=== PATIENT | male | born 1940 | race Caucasian/White ===

== ENCOUNTER 2019-09-23 06:55 | Outpatient (CLI) | payer MEDICARE, SELFPAY ==
[2019-09-23 08:24] LABS: Alanine Aminotransferase 23 U/L (4-50); Albumin Level 3.9 g/dL (3.5-5.1); Alkaline Phosphatase 62 U/L (38-126); Aspartate Amino Transferase 30 U/L (17-59); Bilirubin,Total 0.3 mg/dL (0.2-1.3); Blood Urea Nitrogen 21 mg/dL (9-20); Calcium 9.9 mg/dL (8.4-10.2); Carbon Dioxide 27 mmol/L (22-30); Chloride 100 mmol/L (98-107); Cholesterol 160 mg/dL (0-200); Estimated Glomerular Filt Rate > 60; Glucose 94 mg/dL (75-110); HDL Direct 57 mg/dL; Potassium 4.3 mmol/L (3.4-5.0); Sodium 137 mmol/L (137-145); Triglycerides 70 mg/dL (<150)
[2019-09-23 08:35] LABS: LDL Cholesterol Direct 88 mg/dL
== END 2019-09-23 06:56 | disposition home or self-care (01) ==
PROVIDERS: PCP Emergency Medicine; Visit Provider Emergency Medicine
DX: E78.5 Hyperlipidemia, unspecified (principal)
CPT/HCPCS: 36415; 80053; 80061

== ENCOUNTER 2019-12-31 07:26 | Outpatient (CLI) | payer MEDICARE, SELFPAY ==
[2019-12-31 08:09] LABS: Alanine Aminotransferase 27 U/L (4-50); Albumin Level 4.3 g/dL (3.5-5.1); Alkaline Phosphatase 55 U/L (38-126); Aspartate Amino Transferase 39 U/L (17-59); Bilirubin,Total 0.7 mg/dL (0.2-1.3); Blood Urea Nitrogen 23 mg/dL (9-20); Calcium 10.3 mg/dL (8.4-10.2); Carbon Dioxide 28 mmol/L (22-30); Chloride 103 mmol/L (98-107); Cholesterol 167 mg/dL (0-200); Estimated Glomerular Filt Rate > 60; Glucose 90 mg/dL (75-110); HDL Direct 48 mg/dL; Potassium 4.7 mmol/L (3.4-5.0); Sodium 134 mmol/L (137-145); Triglycerides 60 mg/dL (<150)
[2019-12-31 08:20] LABS: LDL Cholesterol Direct 91 mg/dL
== END 2019-12-31 07:27 | disposition home or self-care (01) ==
LOC: ANHLAB 07:28
PROVIDERS: PCP Emergency Medicine; Visit Provider Emergency Medicine
DX: E78.5 Hyperlipidemia, unspecified (principal)
CPT/HCPCS: 36415; 80053; 80061

== ENCOUNTER 2020-01-24 23:37 | Observation (INO) | payer MEDICARE, SELFPAY ==
--- NOTE | ~2020-01-24 | XR_ITS ---
EXAMINATION: XR chest 2V DATE: 01/25/2020 00:18 INDICATION: Midsternal chest pain. TECHNIQUE: PA and lateral views of the chest were obtained. COMPARISON: Chest radiograph dated 5 FINDINGS: Elevation of the right hemidiaphragm. Linear opacities at the bilateral lung bases and favor atelecta sis over pneumonia. No pulmonary edema, pleural effusion or pneumothorax. The cardiomediastinal silho uette is normal. Moderate spondylosis. IMPRESSION: 1. Elevation right hemidiaphragm and mild bibasilar atelectasis. Reviewed, dictated and finalized at location A.
[2020-01-24 23:38] VITALS: BP 184/95; PULSE 105; RESP 17; TEMP 36; O2SAT 97
--- NOTE | 2020-01-24 23:44 | ECG_ITS ---
Measurements Intervals [place] Rate: 92 P: 69 MI: 157 QRS: -22 QRSD: 122 T: 46 QT: 363 QTc: 450 Interpretive Statements SINUS RHYTHM POSSIBLE LEFT ATRIAL ENLARGEMENT RIGHT BUNDLE BRANCH BLOCK BASELINE ARTIFACT- I, III, AVL, AVF ABNORMAL ECG Electronically Signed On 01-25-2020 8:09:42 CDT by Sunny Ramsey D.O.
[2020-01-24 23:54] LABS: Basophils Percent Auto 0.5 % (0.2-1.2); Eosinophils Absolute Auto 0.2 K/mm3 (0-0.3); Eosinophils Percent Auto 2.5 % (0-4.4); Hematocrit 42.3 % (42.0-52.0); Hemoglobin 14.5 g/dL (14.0-18.0); Immature Granulocyte Absolute 0.03 K/mm3 (0.00-0.031); Immature Granulocyte Percent A 0.4 % (0-0.5); Lymphocytes Absolute Auto 2.11 K/mm3 (0.9-3.2); Lymphocytes Percent Auto 26.8 % (18.3-44.2); Mean Corpuscular HGB Conc 34.3 g/dl (32-36); Mean Corpuscular Volume 99.3 fl (80-100); Mean Platelet Volume 8.8 fl (7.4-10.4); Monocytes Absolute Auto 0.8 K/mm3 (0.1-0.6); Monocytes Percent Auto 10.3 % (2.6-8.5); Neutrophils Absolute Auto 4.7 K/mm3 (1.3-6.7); Neutrophils Percent Auto 59.5 % (45.5-73.1); Platelet Count Result 251 k/mm3 (150-375); Red Blood Count 4.26 M/mm3 (4.6-6.20); Red Cell Distribution Width 12.6 % (11.5-14.5); White Blood Count 7.9 K/mm3 (4.5-10.0)
[2020-01-25] VITALS (16 sets, daily range): BP systolic 115–162; BP diastolic 53–110; PULSE 61–112; RESP 13–20; TEMP 35.5–36.8; O2SAT 96–97; BMI 28.9
[2020-01-25 00:03] LABS: INR 0.9; Prothrombin Time 11.7 Seconds (11.1-14.7)
[2020-01-25 00:04] LABS: Partial Thromboplastin Time 25.4 SECONDS (22.3-36.8)
[2020-01-25 00:06] LABS: Blood Urea Nitrogen 37 mg/dL (9-20); Calcium 10.7 mg/dL (8.4-10.2); Carbon Dioxide 27 mmol/L (22-30); Chloride 103 mmol/L (98-107); Estimated CRCL calculation 63 ml/min; Estimated Glomerular Filt Rate > 60; Glucose 118 mg/dL (75-110); Potassium 4.6 mmol/L (3.4-5.0); Sodium 137 mmol/L (137-145)
[2020-01-25 00:18] LABS: Troponin I < 0.012 ng/mL (0.000-0.034)
--- NOTE | 2020-01-25 00:33 | ED.CHESTPAIN ---
HPI - Chest Pain General Chief Complaint: Chest Pain Stated Complaint: chest discomfort Time Seen by Provider: 01/24/20 23:54 Source: patient Mode of arrival: ambulatory Limitations: no limitations History of Present Illness HPI narrative: This patient is a 80 year old male with history of Coronary artery disease s/p stents in 2004 who presents for evaluation of chest heaviness. Patient states today he has been experiencing intermittent heaviness across his chest when he walks around . He states it does not happen every time he walks. Today he woke up at 1030 pm to use the restroom. He states while laying in bed he had no pain but he developed pain on walking to the restroom. His pain does not radiate. His pain has resolved now with rest. He had associated sob. HE denies diaphoresis, dizziness, nausea or vomiting. 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 He last saw cardiology in 2012 when he had stress test. MD complaint: chest heaviness Related Data Home Medications Medication Instructions Recorded Confirmed cholecalciferol (vitamin D3) 1,000 unit PO DAILY 06/05/19 01/25/20 [Vitamin D3] multivitamin 1 tablet PO DAILY 06/05/19 01/25/20 aspirin 81 mg tablet,delayed See Rx Instructions PO BID 01/06/20 01/25/20 release Allergies Allergy/AdvReac Type Severity Reaction Status Date / Time No Known Allergies Allergy Unknown Verified 01/24/20 23:42 Review of Systems Review of Systems: All systems reviewed & are unremarkable except as noted in HPI and below Constitutional: Constitutional: Denies chills and Denies fever(s) Cardiovascular: Cardiovascular: Reports chest pain Respiratory: Respiratory: Denies chest congestion, Denies cough and Reports dyspnea Gastrointestinal: Gastrointestinal: Denies abdominal pain, Denies nausea and Denies vomiting PMFSH Past Medical History Medical History CAD (coronary artery disease) Hyperlipidemia Hypertension Squamous cell cancer of skin of forearm Surgical History Surgical History H/O cardiac catheterization Hx of appendectomy Hx of local excision of skin lesion Hx of tonsillectomy Family History Family History Sibling Carcinoma of colon, Onset Age: 59 Father Family history of cardiovascular disease, Onset Age: 83 Social History Social History Smoking status: Former smoker Alcohol intake: never Substance use: never Gender identity (if verbalized by the patient): Male Spiritual care concerns: No Exam Narrative: Exam Narrative: GENERAL: Well-appearing, well-nourished, and in no acute distress. HEAD: Normocephalic, atraumatic EYES: PERRLA and EOMI, conjunctiva clear without discharge EARS: TM's clear bilaterally without erythema or dullness e NECK: Supple, without lymphadenopathy or mass RESPIRATORY: No respiratory distress, Airway patent, Respirations non-labored, Clear to auscultation without rales, rhonchi or wheeze HEART: Regular rate and rhythm. No murmur heard. Normal peripheral pulses. ABDOMEN: Soft, nontender, nondistended, normal active bowel sounds. No masses. No rebound or guarding, No organomegaly. EXTREMITIES: No edema, normal strength with full range of motion. SKIN: Warm, dry, normal color without rash NEURO: Alert and oriented x3. CN 2-12 grossly intact. No focal deficits. PSYCH: Normal mood and affect. Course Consultations Consultation #1: I Discussed case with Dr. Escalona who accepts for admission to IMU for rule out MO Date: 01/25/20 Time: 01:18 Vital Signs Vital signs: Vital Signs Temperature 96.8 F L 01/24/20 23:38 Pulse Rate 105 H 01/24/20 23:38 Respiratory Rate 17 01/24/20 23:38 Blood Pressure 184/95 H 01/24/20 23:38 Pulse Oximetry 97 01/24/20 23:38 [place]
[2020-01-25] MEDS: ASPIRIN 81 MG CHEWABLE TABLET 324 MG PO (01:25)
--- NOTE | 2020-01-25 02:02 | ADMGEN ---
This patient, Diallo Michele, was admitted to IMU Room 211-01. Patient/family oriented to hospital policies and general routines including ID bracelet, bed and alarms, visiting hours, pain management, procedures, bathroom and other care routines, personal items, smoking policy, room service/diet, and visiting hours. Valuables list has been completed. Information on how to activate the Rapid Response Team has been discussed. Patient/Family are encouraged to report perceived risks to care and to ask questions if they do not understand what they are told or what they should do.
--- NOTE | 2020-01-25 02:54 | ECG_ITS ---
Measurements Intervals [place] Rate: 63 P: 48 NV: 154 QRS: -2 QRSD: 127 T: 36 QT: 408 QTc: 419 Interpretive Statements SINUS RHYTHM RIGHT BUNDLE BRANCH BLOCK ABNORMAL ECG Electronically Signed On 01-25-2020 8:11:30 CDT by Sunny Ramsey D.O.
--- NOTE | 2020-01-25 02:57 | PM.IMHP ---
H&P: HPI History of Present Illness Chief complaint: chest pain r/o [place] Narrative: This is a pleasant 80 year old male with known CAD+ s/p #3 stents placed in 2004, HTN, and hyperlipidemia who presented to the hospital with a complaint of worsening midsternal chest heaviness when he got up and went to the bathroom this evening. His chest pain lasted almost 1 hour in duration and resolved on its own by the time he came to the hospital. He denies any associated shortness of breath, diaphoresis, nausea or vomiting. He relates that he has been having exertional chest discomfort over the past few weeks that normally resolves with rest. Tonight his discomfort was worse than normal. His last stress test was in 2012. He denies any other associated symptoms such as fever, headache, chills, cough, abdominal pain, dysuria, hematuria, diarrhea, rectal bleeding or LE swelling. The patient's initial troponin was negative. We were asked to admit the patient to the hospital for cardiac rule out. He has no other symptoms. Review of Systems Review of Systems: All systems reviewed & are unremarkable except as noted in HPI and below PMFSH Past Medical History Medical History CAD (coronary artery disease) Hyperlipidemia Hypertension Squamous cell cancer of skin of forearm Surgical History Surgical History H/O cardiac catheterization Hx of appendectomy Hx of local excision of skin lesion Hx of tonsillectomy Family History Family History Sibling Carcinoma of colon, Onset Age: 59 Father Family history of cardiovascular disease, Onset Age: 83 Social History Social History Smoking status: Former smoker Alcohol intake: never Substance use: never Gender identity (if verbalized by the patient): Male Spiritual care concerns: No Meds Home Medications and Allergies Home Medications Medication Instructions Recorded Confirmed Type metoprolol succinate 25 mg 25 mg PO DAILY #90 tablet 06/03/19 01/25/20 Rx tablet,extended release 24 hr cholecalciferol (vitamin D3) 1,000 unit PO DAILY 06/05/19 01/25/20 History [Vitamin D3] multivitamin 1 tablet PO DAILY 06/05/19 01/25/20 History lisinopril 5 mg tablet 5 mg PO DAILY #90 tablet 07/05/19 01/25/20 Rx atorvastatin 10 mg tablet See Rx Instructions .ROUTE 07/22/19 01/25/20 Rx .COMPLEX #90 tablet aspirin 81 mg tablet,delayed See Rx Instructions PO BID 01/06/20 01/25/20 History release Allergies Allergy/AdvReac Type Severity Reaction Status Date / Time No Known Allergies Allergy Unknown Verified 01/24/20 23:42 Vital Signs Vital Signs - 24 hr 01/24/20 23:38 01/25/20 00:47 01/25/20 00:48 Temperature 36.0 C L Pulse Rate 105 H 66 64 Respiratory Rate 17 13 Blood Pressure 184/95 H 142/88 H Pulse Oximetry 97 96 01/25/20 01:55 01/25/20 02:07 01/25/20 02:08 Temperature 35.5 C L Pulse Rate 63 61 64 Respiratory Rate 20 18 Blood Pressure 129/110 H 156/53 H Pulse Oximetry 96 96 Exam Const: General: cooperative, healthy appearing, no acute distress, alert and awake Nutritional Appearance: well nourished Orientation/consciousness: patient oriented x3 HENMT: Head: normal to inspection General nose exam: Normal external nose present Face and sinus: normal facial exam Mouth: Yes Normal oral and palatal mucosa present and Yes oropharynx normal Eyes: Pupils: Equal, round and reactive pupils present EOM: EOMs intact bilaterally Neck: Neck: supple and no JVD Thyroid: thyroid normal Lymphatic: lymphadenopathy not noted Resp: Effort & Inspection: normal respiratory effort Auscultation: clear to auscultation bilaterally Cardio: Rate: regular rate Rhythm: regular rhythm Heart sounds: no murmurs GI: Inspection:
[2020-01-25 03:39] LABS: Troponin I < 0.012 ng/mL (0.000-0.034)
[2020-01-25 06:47] LABS: Troponin I 0.017 ng/mL (0.000-0.034)
[2020-01-25] MEDS: CHOLECALCIFEROL 1,000 UNIT TABLET 1000 UNITS PO (10:55)
[2020-01-25] MEDS: ASPIRIN 81 MG CHEWABLE TABLET PO (10:55)
[2020-01-25] MEDS: lisinopriL 5 MG TABLET PO (10:55)
[2020-01-25] MEDS: MULTIVITAMINS THERAPEUTIC TAB (*BKC) 1 TABLET PO (10:55)
--- NOTE | 2020-01-25 11:07 | PM.IMPN ---
Progress Note: A&P Assessment and Plan (1) Chest pain: Qualifiers: Chest pain type: unspecified Qualified Code(s): R07.9 - Chest pain, unspecified Code(s): R07.9 - Chest pain, unspecified Status: Acute Assessment and Plan: Patient with history of CAD and coronary stents x 3 in 2004 presents with intermittent chest pressure with activity and exertional dyspnea. Discussed case with Dr Almodovar and appreciate his recommendations. Feel that it is best to keep patient here for cardiac catheterization on Monday given the concern for his progressive symptoms. Serial trops are negative. Today he remains on beta blockade, AILEEN inhibitor, ASA, statin therapy. Cardiology started imdur as well. (2) Hypertension: Qualifiers: Hypertension type: essential hypertension Qualified Code(s): I10 - Essential (primary) hypertension Code(s): I10 - Essential (primary) hypertension Status: Chronic Assessment and Plan: BPs are a bit elevated today, he remains on his home metoprolol and lisinopril. Will monitor. (3) Hyperlipidemia: Qualifiers: Hyperlipidemia type: unspecified Qualified Code(s): E78.5 - Hyperlipidemia, unspecified Code(s): E78.5 - Hyperlipidemia, unspecified Status: Chronic Assessment and Plan: Continue statin therapy. Subjective Date/time seen: 01/25/20 1100 Interval history: Mr. Michele is a 80yo M admitted for chest pain. He describes intermittent episodes of chest pressure across both sides of his chest over the last few weeks. He presented last night after waking up from sleeping, walking to the restroom and experiencing this discomfort while walking, this time worse than before. He notes that he wasn't particularly short of breath or sweaty during the episode, but has noticed more shortness of breath with exertion over the last few weeks. He describes he is not having this chest pressure this morning or any shortness of breath so far today. He has tolerated oral intake without nausea or vomiting. Review of Systems Review of Systems: Narrative: Twelve systems were reviewed with pertinent positives and negatives as per HPI. Exam Narrative: Exam Narrative: General: Male resting comfortably supine in bed in no acute distress. HEENT: Normocephalic, EOMI, oral mucosa moist. Cardiovascular: Rate and rhythm are regular. Respiratory: Lungs clear to auscultation all raya. Respirations even and nonlabored. Tolerating room air. Abdomen: Soft, non-tender, non-distended, bowel sounds present. Extremities: Peripheral pulses intact. No edema appreciated. Neuro: No focal neurological deficits. Speech is clear. Objective Data Vital Signs Vital Signs: Last Vital Signs Temp 98.2 F 01/25/20 12:00 Pulse 105 H 01/25/20 14:00 Resp 16 01/25/20 12:00 BP 162/83 H 01/25/20 12:00 Pulse Ox 97 01/25/20 12:00 Intake/Output Intake/Output: Intake & Output 01/22/20 01/23/20 01/24/20 01/25/20 23:59 23:59 23:59 23:59 Intake Total 340 Balance 340 Meds/Results Medications: Active Medications Generic Name Dose Route Start Last Admin Trade Name Freq PRN Reason Stop Dose Admin Aspirin 81 mg 01/25/20 08:00 01/25/20 10:55 Aspirin Chewable PO 81 mg DAILY@0800 [facility] Administration Atorvastatin Calcium 10 mg 01/26/20 09:00 Lipitor BY MOUTH SuMoWeFr@0900 [facility] Lisinopril 5 mg 01/25/20 09:00 01/25/20 10:55 Prinivil PO 5 mg DAILY [facility] Administration Metoprolol Succinate 25 mg 01/25/20 09:00 Toprol Xl PO DAILY [facility] Morphine Sulfate 4 mg 01/25/20 01:16 Morphine Sulfate Inj IV PUSH Q2H PRN Pain Rated 7-10 Multivitamins Therapeutic 1 tablet 01/25/20 09:00 01/25/20 10:55 Multivitamins Therapeutic(*Bkc PO 1 tablet DAILY [facility] Administration Nitroglycerin 0.4 mg 01/25/20 01
[2020-01-25] MEDS: METOPROLOL SUCCINATE EXT REL 25 MG TABCR PO (11:34)
--- NOTE | 2020-01-25 12:02 | PM.CNCAR ---
Assessment and Plan Assessment and plan (1) Progressive angina: Code(s): I20.0 - Unstable angina Status: Acute Assessment and Plan: serial cardiac enzymes negative for acute myocardial infarction. Subtle ST depressions initially on EKG improved this a.m.. Underlying right bundle-branch block noted. Patient has been experiencing progressive limiting exertional dyspnea associated with chest tightness initially more significant exertion until evening of presentation which was noted walking to the restroom lasting from 1-1.5 hours prior to resolving. Patient admits to progressive fatigue and dyspnea with associated discomfort for the past 6 months worse over the past 2 weeks. Pattern concerning for escalating / progressive angina. Given patient's history of CAD, h/o previous stentsx3 2004, risk factors, and the escalating angina, coronary angiography advised as his pretest probability is very high and even if noninvasive stress test unremarkable our clinic concern for obstructive CAD would remain. In other words, I would expect a stress test to be abnormal. continue aspirin 81 mg daily, statin, BB. Add long-acting nitrate. Of any recurrent symptoms exertional dyspnea and or chest pain patient will need to remain hospitalized for coronary angiography in a.m. on Monday. If he has no recurrent symptoms is possible he may be discharged, however, I am concerned given escalating nature of his symptoms he may require readmission over the weekend or prior to the ability to perform coronary angiography given the delays associated with current pandemic precautions/policies. We discussed this in great detail. All questions answered to his satisfaction. Patient will consider these recommendations and make a decision, however, my preference is to remain hospitalized this weekend for observation, medication adjustment and coronary angiography Monday (or sooner if he is unstable or has refractory angina). If patient stays this weekend, keep NPO after midnight Monday night for anticipated coronary angiography Monday. Discussed risks, benefits, and alternatives of the above recommendations. Patient verbalized understanding and agreed to comply with plan of care. All questions answered to his satisfaction. (2) CAD (coronary artery disease): Code(s): I25.10 - Atherosclerotic heart disease of [place] coronary artery without angina pectoris Status: Acute Assessment and Plan: History of coronary stenting in 2004 x3. details unavailable at this time. Continue aggressive medical therapy. See above. 2D echocardiogram. Patient reports his last stress test 2012. He has not followed with a [facility] for many years. (3) Hypertension: Code(s): I10 - Essential (primary) hypertension Status: Chronic Assessment and Plan: Elevated but fair overall. Continue to monitor. (4) Hyperlipidemia: Qualifiers: Hyperlipidemia type: unspecified Qualified Code(s): E78.5 - Hyperlipidemia, unspecified Code(s): E78.5 - Hyperlipidemia, unspecified Status: Chronic Assessment and Plan: Check fasting lipid profile. Goal LDL less than 70. Recommend escalation of statin dosing to at least 40 mg atorvastatin nightly as patient tolerates. (5) Shortness of breath on exertion: Code(s): R06.02 - Shortness of breath Status: Acute Assessment and Plan: most likely secondary to underlying obstructive CAD as part of his anginal equivalent. History of Present Illness History of Present Illness Consult date/time: date of service: 01/25/20 12:02 This is a cardiology consultation at the request of EVERETTE Gates for my opinion regarding progressive exertional angina. Requesting physician: Joelle Garner PA-C Consult reason: chest pain Reason For Visit: chest pain r/o [place] Narrative: patient is a very pleasant 80-year-old male with a past
--- NOTE | 2020-01-25 12:18 | ECHO_ITS ---
Patient Info Name: Diallo Michele Age: 80 years : 1940 Gender: Male Ht: 67 in Wt: 184 lbs BSA: 2.01 m2 HR: 88 bpm BP: 151 / 75 mmHg Heart Rhythm: Sinus Rhythm Technical Quality: Good Exam Date: 01/25/2020 12:43 PM Exam Location: [facility] Pulmonary Exam Room: 211 Patient Status: Inpatient Admit Date: 01/25/2020 Staff Ordering Physician: Tristen Almodovar MD Slip Cover Cutter: Sarah Velasquez RDCS Attending Provider: Joelle Garner PA-C Referring Physician: Scooby GARCES; Exam Type: CA echo doppler color flow Study Info Indications - chest pain Complete two-dimensional, color flow and Doppler transthoracic echocardiogram is performed. Summary 1. Left ventricular chamber dimension is normal. 2. Left ventricular systolic function is normal, estimated at 65-70%. 3. The left ventricular diastolic function is grade I diastolic dysfunction. 4. There is trace mitral valve regurgitation. 5. There is trace tricuspid valve regurgitation. 6. No pulmonary hypertension, estimated pulmonary arterial systolic pressure is 23 mmHg. Left Ventricle Left ventricular chamber dimension is normal. Left ventricular systolic function is normal, estimated at 65-70%. There is no increased left ventricular wall thickness. The left ventricular diastolic function is grade I diastolic dysfunction. Right Ventricle Right ventricular chamber dimension is normal. Right ventricular systolic function is normal. Left Atria Left atrial chamber dimension is normal. Right Atria Right atrial chamber dimension is normal. Aortic Valve The aortic valve is trileaflet. There is mild aortic valve sclerosis. There is no aortic valve stenosis. There is mild aortic valve regurgitation. Pulmonic Valve The pulmonic valve is not well visualized. There is mild pulmonic regurgitation. Mitral Valve The mitral valve has thickened leaflets. There is trace mitral valve regurgitation. The mitral valve annulus is mildly calcified. Tricuspid Valve The tricuspid valve leaflets are normal. There is trace tricuspid valve regurgitation. No pulmonary hypertension, estimated pulmonary arterial systolic pressure is 23 mmHg. Pericardium/Pleural The pericardium appears normal. There is no pericardial effusion. Inferior Vena Cava Normal inferior vena cava with >50% collapse upon inspiration consistent with normal right atrial pressure, 5 mmHg. Aorta The aortic root size at the sinus of Valsalva is normal. There is mild aortic atherosclerosis. Left Ventricular Outflow Tract Name Value Normal LVOT 2D LVOT Diameter 2.1 cm LVOT Doppler LVOT Peak Gradient 5 mmHg LVOT Mean Gradient 2 mmHg LVOT VTI 19 cm LVOT VTI/AV VTI Ratio 0.8 LVOT Stroke Volume 65 ml LVOT CO 15.4 l/min LVOT CI 7.7 l/min/m2 Pulmonic Valve Name
[2020-01-25] MEDS: ISOSORBIDE MONONITRATE 30 MG TAB.ER.24H PO (12:39)
[2020-01-25 12:52] LABS: Cholesterol 183 mg/dL (0-200); HDL Direct 53 mg/dL; Triglycerides 98 mg/dL (<150)
[2020-01-25 13:03] LABS: LDL Cholesterol Direct 102 mg/dL
[2020-01-26] VITALS (18 sets, daily range): BP systolic 109–128; BP diastolic 56–69; PULSE 55–88; RESP 12–20; TEMP 35.8–36.6; O2SAT 93–97
[2020-01-26 04:32] LABS: Blood Urea Nitrogen 28 mg/dL (9-20); Calcium 9.7 mg/dL (8.4-10.2); Carbon Dioxide 26 mmol/L (22-30); Chloride 103 mmol/L (98-107); Estimated CRCL calculation 50 ml/min; Estimated Glomerular Filt Rate > 60; Glucose 99 mg/dL (75-110); Magnesium 2.2 mg/dL (1.6-2.3); Phosphorus 2.9 mg/dL (2.5-4.5); Potassium 4.6 mmol/L (3.4-5.0); Sodium 134 mmol/L (137-145)
[2020-01-26] MEDS: MULTIVITAMINS THERAPEUTIC TAB (*BKC) 1 TABLET PO (09:14)
[2020-01-26] MEDS: ASPIRIN 81 MG CHEWABLE TABLET PO (09:14)
[2020-01-26] MEDS: lisinopriL 5 MG TABLET PO (09:14)
[2020-01-26] MEDS: METOPROLOL SUCCINATE EXT REL 25 MG TABCR PO (09:14)
[2020-01-26] MEDS: ISOSORBIDE MONONITRATE 30 MG TAB.ER.24H PO (09:14)
[2020-01-26] MEDS: CHOLECALCIFEROL 1,000 UNIT TABLET 1000 UNITS PO (09:14)
[2020-01-26] MEDS: ATORVASTATIN 10 MG TABLET BY MOUTH (10:31)
--- NOTE | 2020-01-26 12:11 | PM.PNCARD ---
Progress Note: A&P Assessment and Plan (1) Progressive angina: Code(s): I20.0 - Unstable angina Status: Acute Assessment and Plan: Mild exertional dyspnea persist but no chest pain. Tolerating isosorbide mononitrate 30 mg daily. Continue aspirin, statin, AILEEN-inhibitor and metoprolol. NPO after midnight for left heart catheterization in a.m. to delineate coronary anatomy. Patient had Taxus 2 express stents placed 2005 2.5 x 12 mm proximal LAD, 2.5 x 8 mm proximal LAD, 2.75 x 12 mm proximal circumflex. 2D echo personally reviewed: Summary 1. Left ventricular chamber dimension is normal. 2. Left ventricular systolic function is normal, estimated at 65-70%. 3. The left ventricular diastolic function is grade I diastolic dysfunction. 4. There is trace mitral valve regurgitation. 5. There is trace tricuspid valve regurgitation. 6. No pulmonary hypertension, estimated pulmonary arterial systolic pressure is 23 mmHg. (2) CAD (coronary artery disease): Code(s): I25.10 - Atherosclerotic heart disease of [place] coronary artery without angina pectoris Status: Acute Assessment and Plan: History of coronary stenting in 2004 x3. Continue aggressive medical therapy. Further recommendation to follow after coronary angiography in a.m.. We discussed risks, benefits, and alternatives. All questions answered to his satisfaction including possibility of escalating medical management, percutaneous intervention and stent implantation, and referral for CABG. (3) Hypertension: Qualifiers: Hypertension type: essential hypertension Qualified Code(s): I10 - Essential (primary) hypertension Code(s): I10 - Essential (primary) hypertension Status: Chronic Assessment and Plan: Improved with addition of Imdur. Continue to monitor. (4) Hyperlipidemia: Qualifiers: Hyperlipidemia type: unspecified Qualified Code(s): E78.5 - Hyperlipidemia, unspecified Code(s): E78.5 - Hyperlipidemia, unspecified Status: Chronic Assessment and Plan: Check fasting lipid profile. Goal LDL less than 70. LDL 102. Increase atorvastatin to 40 mg at bedtime. (5) Shortness of breath on exertion: Code(s): R06.02 - Shortness of breath Status: Acute Assessment and Plan: Most likely anginal equivalent due to underlying CAD. No evidence of decompensated heart failure or other acute respiratory problem. Subjective Date/time seen: Date of service: 01/26/20 12:11 Follow-up for unstable angina, CAD Interval history: No recurrent chest pain. No issues overnight. Patient has been ambulating and admits to persistent mild exertional dyspnea which is not normal for him. He decided to remain hospitalized for coronary angiography Monday morning. No edema, dizziness or lightheadedness. Tolerate Imdur which was added yesterday. No palpitations. Review of Systems Review of Systems: All systems reviewed & are unremarkable except as noted in HPI and below Constitutional: Constitutional: Reports as per HPI, Reports no additional constitutional complaints, Denies chills, Denies excessive sweating, Reports fatigue and Denies headache(s) Eyes: Eyes: Reports as per HPI and Reports no additional eye complaints ENT: Reports system reviewed and no additional complaints, except as documented, Reports as per HPI, Denies dysphagia, Denies headache(s), Denies nasal discharge and Denies neck pain Cardiovascular: Cardiovascular: Reports as per HPI, Reports no additional cardiovascular complaints, Reports chest pain, Denies diaphoresis, Denies leg edema, Denies lightheadedness, Denies palpitations and Reports dyspnea on exertion Respiratory: Respiratory: Reports as per HPI, Reports no additional respiratory complaints, Reports cough, Denies hemoptysis, Reports dyspnea on exertion and Denies wheezing Gastrointestinal: Gastrointestinal: Reports as per HPI, Reports no addit
--- NOTE | 2020-01-26 13:37 | PM.IMPN ---
Progress Note: A&P Assessment and Plan (1) Chest pain: Qualifiers: Chest pain type: unspecified Qualified Code(s): R07.9 - Chest pain, unspecified Code(s): R07.9 - Chest pain, unspecified Status: Acute Assessment and Plan: Patient with history of CAD and coronary stents x 3 in 2004 presents with intermittent chest pressure with activity and exertional dyspnea. Discussed case with Dr Almodovar and appreciate his recommendations. Given his progression of symptoms, he will stay overnight for cardiac catheterization tomorrow. Today he remains on beta blockade, AILEEN inhibitor, ASA, statin therapy. Cardiology started imdur as well. (2) Hypertension: Qualifiers: Hypertension type: essential hypertension Qualified Code(s): I10 - Essential (primary) hypertension Code(s): I10 - Essential (primary) hypertension Status: Chronic Assessment and Plan: Last BP 128/68. He remains on his home metoprolol and lisinopril, new imdur. Will monitor. (3) Hyperlipidemia: Qualifiers: Hyperlipidemia type: unspecified Qualified Code(s): E78.5 - Hyperlipidemia, unspecified Code(s): E78.5 - Hyperlipidemia, unspecified Status: Chronic Assessment and Plan: Continue statin therapy. Subjective Date/time seen: 01/26/20 1145 Interval history: Mr. Michele is a 80yo M with CAD admitted for unstable angina. No recurrent chest pain over night or this morning. He does describe some mild shortness of breath with walking to the restroom. He has tolerated oral intake without nausea, vomiting or abdominal pain. Review of Systems Review of Systems: Narrative: Twelve systems were reviewed with pertinent positives and negatives as per HPI. Exam Narrative: Exam Narrative: General: Male resting comfortably supine in bed in no acute distress. HEENT: Normocephalic, EOMI, oral mucosa moist. Cardiovascular: Rate and rhythm are regular. Respiratory: Lungs clear to auscultation all raya. Respirations even and non-labored. Tolerating room air. Abdomen: Soft, non-tender, non-distended, bowel sounds present. Extremities: Peripheral pulses intact. No edema appreciated. Neuro: No focal neurological deficits. Speech is clear. Objective Data Vital Signs Vital Signs: Last Vital Signs Temp 98 F 01/26/20 12:00 Pulse 68 01/26/20 12:00 Resp 12 01/26/20 12:00 BP 128/68 01/26/20 12:00 Pulse Ox 97 01/26/20 12:00 Intake/Output Intake/Output: Intake & Output 01/23/20 01/24/20 01/25/20 01/26/20 23:59 23:59 23:59 23:59 Intake Total 1500 440 Output Total 1250 325 Balance 250 115 Meds/Results Medications: Active Medications Generic Name Dose Route Start Last Admin Trade Name Freq PRN Reason Stop Dose Admin Aspirin 81 mg 01/25/20 08:00 01/26/20 09:14 Aspirin Chewable PO 81 mg DAILY@0800 [facility] Administration Atorvastatin Calcium 10 mg 01/26/20 09:00 01/26/20 10:31 Lipitor BY MOUTH 10 mg SuMoWeFr@0900 [facility] Administration Isosorbide Mononitrate 30 mg 01/25/20 12:05 01/26/20 09:14 Imdur PO 30 mg QAM [facility] Administration Lisinopril 5 mg 01/25/20 09:00 01/26/20 09:14 Prinivil PO 5 mg DAILY [facility] Administration Metoprolol Succinate 25 mg 01/25/20 09:00 01/26/20 09:14 Toprol Xl PO 25 mg DAILY [facility] Administration Morphine Sulfate 4 mg 01/25/20 01:16 Morphine Sulfate Inj IV PUSH Q2H PRN Pain Rated 7-10 Multivitamins Therapeutic 1 tablet 01/25/20 09:00 01/26/20 09:14 Multivitamins Therapeutic(*Bkc PO 1 tablet DAILY [facility] Administration Nitroglycerin 0.4 mg 01/25/20 01:16 Nitrostat Subl 0.4 Mg (1/150) SUBLINGUAL Q5MIN PRN Chest Pain Ondansetron HCl 4 mg 01/25/20 01:16 Zofran Inj IV PUSH Q4H PRN Nausea Vitamin D 1,000 unit 01/25/20 09:00 01/26/20 09:
[2020-01-27] VITALS (25 sets, daily range): BP systolic 120–161; BP diastolic 62–86; PULSE 60–92; RESP 13–20; TEMP 35.7–36.7; O2SAT 96–100
[2020-01-27 04:55] LABS: Basophils Percent Auto 0.5 % (0.2-1.2); Eosinophils Absolute Auto 0.2 K/mm3 (0-0.3); Eosinophils Percent Auto 4.3 % (0-4.4); Hematocrit 34.8 % (42.0-52.0); Immature Granulocyte Absolute 0.02 K/mm3 (0.00-0.031); Immature Granulocyte Percent A 0.4 % (0-0.5); Lymphocytes Absolute Auto 1.38 K/mm3 (0.9-3.2); Lymphocytes Percent Auto 24.8 % (18.3-44.2); Mean Corpuscular HGB Conc 34.5 g/dl (32-36); Mean Corpuscular Hemoglobin 34.1 pg (26-34); Mean Corpuscular Volume 98.9 fl (80-100); Mean Platelet Volume 9.1 fl (7.4-10.4); Monocytes Absolute Auto 0.6 K/mm3 (0.1-0.6); Monocytes Percent Auto 10.4 % (2.6-8.5); Neutrophils Absolute Auto 3.3 K/mm3 (1.3-6.7); Neutrophils Percent Auto 59.6 % (45.5-73.1); Platelet Count Result 201 k/mm3 (150-375); Red Blood Count 3.52 M/mm3 (4.6-6.20); Red Cell Distribution Width 12.2 % (11.5-14.5); White Blood Count 5.6 K/mm3 (4.5-10.0)
[2020-01-27 05:06] LABS: Prothrombin Time 12.6 Seconds (11.1-14.7)
[2020-01-27 05:07] LABS: Partial Thromboplastin Time 27.5 SECONDS (22.3-36.8)
[2020-01-27 05:12] LABS: Blood Urea Nitrogen 24 mg/dL (9-20); Calcium 9.6 mg/dL (8.4-10.2); Carbon Dioxide 25 mmol/L (22-30); Chloride 104 mmol/L (98-107); Estimated CRCL calculation 62 ml/min; Estimated Glomerular Filt Rate > 60; Glucose 93 mg/dL (75-110); Magnesium 2.2 mg/dL (1.6-2.3); Potassium 4.2 mmol/L (3.4-5.0); Sodium 133 mmol/L (137-145)
[2020-01-27] MEDS: ATORVASTATIN 10 MG TABLET BY MOUTH (08:24)
[2020-01-27] MEDS: CHOLECALCIFEROL 1,000 UNIT TABLET 1000 UNITS PO (08:24)
[2020-01-27] MEDS: ASPIRIN 81 MG CHEWABLE TABLET PO (08:24)
[2020-01-27] MEDS: MULTIVITAMINS THERAPEUTIC TAB (*BKC) 1 TABLET PO (08:24)
[2020-01-27] MEDS: METOPROLOL SUCCINATE EXT REL 25 MG TABCR PO (08:24)
[2020-01-27] MEDS: lisinopriL 5 MG TABLET PO (08:24)
[2020-01-27] MEDS: ISOSORBIDE MONONITRATE 30 MG TAB.ER.24H PO (08:24)
--- NOTE | 2020-01-27 09:27 | PM.IMPN ---
Progress Note: A&P Assessment and Plan (1) Chest pain: Qualifiers: Chest pain type: unspecified Qualified Code(s): R07.9 - Chest pain, unspecified Code(s): R07.9 - Chest pain, unspecified Status: Acute Assessment and Plan: Patient with history of CAD and coronary stents x 3 in 2004 presents with intermittent chest pressure with activity and exertional dyspnea. Plan is for cardiac catheterization today. Today he remains on beta blockade, AILEEN inhibitor, ASA, statin therapy. Cardiology started imdur as well. Edit: Patient to transfer to [facility] this afternoon for CABG. See Transfer Summary. (2) Hypertension: Qualifiers: Hypertension type: essential hypertension Qualified Code(s): I10 - Essential (primary) hypertension Code(s): I10 - Essential (primary) hypertension Status: Chronic Assessment and Plan: Last BP 135/75. He remains on his home metoprolol and lisinopril, new imdur. Will monitor. (3) Hyperlipidemia: Qualifiers: Hyperlipidemia type: unspecified Qualified Code(s): E78.5 - Hyperlipidemia, unspecified Code(s): E78.5 - Hyperlipidemia, unspecified Status: Chronic Assessment and Plan: Continue statin therapy. Subjective Date/time seen: 01/27/20 0830 Interval history: Mr. Michele is a 80yo M with CAD admitted for unstable angina. He describes some mild chest discomfort with walking to the restroom this morning but denies feeling short of breath so far. Denies nausea, vomiting, or abdominal pain. Slept okay last night. Review of Systems Review of Systems: Narrative: Twelve systems were reviewed with pertinent positives and negatives as per HPI. Exam Narrative: Exam Narrative: General: Male resting comfortably supine in bed in no acute distress. HEENT: Normocephalic, EOMI, oral mucosa moist. Cardiovascular: Rate and rhythm are regular. Respiratory: Lungs clear to auscultation all raya. Respirations even and non-labored. Tolerating room air. Abdomen: Soft, non-tender, non-distended, bowel sounds present. Extremities: Peripheral pulses intact. No edema appreciated. Neuro: No focal neurological deficits. Speech is clear. Objective Data Vital Signs Vital Signs: Last Vital Signs Temp 97.8 F 01/27/20 07:07 Pulse 69 01/27/20 10:00 Resp 18 01/27/20 07:07 BP 135/75 01/27/20 07:07 Pulse Ox 98 01/27/20 07:07 Intake/Output Intake/Output: Intake & Output 01/24/20 01/25/20 01/26/20 01/27/20 23:59 23:59 23:59 23:59 Intake Total 1500 780 350 Output Total 1250 625 375 Balance 250 155 -25 Meds/Results Medications: Active Medications Generic Name Dose Route Start Last Admin Trade Name Freq PRN Reason Stop Dose Admin Aspirin 81 mg 01/25/20 08:00 01/27/20 08:24 Aspirin Chewable PO 81 mg DAILY@0800 [facility] Administration Atorvastatin Calcium 10 mg 01/26/20 09:00 01/27/20 08:24 Lipitor BY MOUTH 10 mg SuMoWeFr@0900 [facility] Administration Isosorbide Mononitrate 30 mg 01/25/20 12:05 01/27/20 08:24 Imdur PO 30 mg QAM [facility] Administration Lisinopril 5 mg 01/25/20 09:00 01/27/20 08:24 Prinivil PO 5 mg DAILY [facility] Administration Metoprolol Succinate 25 mg 01/25/20 09:00 01/27/20 08:24 Toprol Xl PO 25 mg DAILY [facility] Administration Morphine Sulfate 4 mg 01/25/20 01:16 Morphine Sulfate Inj IV PUSH Q2H PRN Pain Rated 7-10 Multivitamins Therapeutic 1 tablet 01/25/20 09:00 01/27/20 08:24 Multivitamins Therapeutic(*Bkc PO 1 tablet DAILY [facility] Administration Nitroglycerin 0.4 mg 01/25/20 01:16 Nitrostat Subl 0.4 Mg (1/150) SUBLINGUAL Q5MIN PRN Chest Pain Ondansetron HCl 4 mg 01/25/20 01:16 Zofran Inj IV PUSH Q4H PRN Nausea Vitamin D 1,000 unit 01/25/20 09:00 01/27/20 08:24 Vitamin D PO 1
--- NOTE | 2020-01-27 10:25 | PC.NURSE ---
Patient to [facility] [employer] via stretcher. Report given to LAURA Raygoza.
--- NOTE | 2020-01-27 10:55 | WPDMODSED ---
Moderate Sedation Note-Pt Data Patient Data Diagnosis: Unstable angina Present Complaint: none Procedure to be performed/Plan: left heart catheterization with selective left and right coronary angiography with left ventriculography and hemodynamics and possible percutaneous intervention and stent implantation. Allergies Allergy/AdvReac Type Severity Reaction Status Date / Time No Known Allergies Allergy Unknown Verified 01/24/20 23:42 Home Medications Medication Instructions Recorded Confirmed Type metoprolol succinate 25 mg 25 mg PO DAILY #90 tablet 06/03/19 01/25/20 Rx tablet,extended release 24 hr cholecalciferol (vitamin D3) 1,000 unit PO DAILY 06/05/19 01/25/20 History [Vitamin D3] multivitamin 1 tablet PO DAILY 06/05/19 01/25/20 History lisinopril 5 mg tablet 5 mg PO DAILY #90 tablet 07/05/19 01/25/20 Rx atorvastatin 10 mg tablet See Rx Instructions .ROUTE 07/22/19 01/25/20 Rx .COMPLEX #90 tablet aspirin 81 mg tablet,delayed See Rx Instructions PO BID 01/06/20 01/25/20 History release Current Medications: Active Medications Aspirin (Aspirin Chewable) 81 mg PO DAILY@0800 [facility] Last Admin: 01/27/20 08:24 Dose: 81 mg Documented by: Atorvastatin Calcium (Lipitor) 10 mg BY MOUTH SuMoWeFr@0900 [facility] Last Admin: 01/27/20 08:24 Dose: 10 mg Documented by: Isosorbide Mononitrate (Imdur) 30 mg PO QAM [facility] Last Admin: 01/27/20 08:24 Dose: 30 mg Documented by: Lisinopril (Prinivil) 5 mg PO DAILY [facility] Last Admin: 01/27/20 08:24 Dose: 5 mg Documented by: Metoprolol Succinate (Toprol Xl) 25 mg PO DAILY [facility] Last Admin: 01/27/20 08:24 Dose: 25 mg Documented by: Morphine Sulfate (Morphine Sulfate Inj) 4 mg IV PUSH Q2H PRN PRN Reason: Pain Rated 7-10 Multivitamins Therapeutic (Multivitamins Therapeutic(*Bkc) 1 tablet PO DAILY [facility] Last Admin: 01/27/20 08:24 Dose: 1 tablet Documented by: Nitroglycerin (Nitrostat Subl 0.4 Mg (1/150)) 0.4 mg SUBLINGUAL Q5MIN PRN PRN Reason: Chest Pain Ondansetron HCl (Zofran Inj) 4 mg IV PUSH Q4H PRN PRN Reason: Nausea Vitamin D (Vitamin D) 1,000 unit PO DAILY [facility] Last Admin: 01/27/20 08:24 Dose: 1,000 unit Documented by: Sedation/Anesthesia: No previous sedation/anesthesia problems (including family history). PMF Past Medical History Medical History CAD (coronary artery disease) Hyperlipidemia Hypertension Squamous cell cancer of skin of forearm Surgical History Surgical History H/O cardiac catheterization Hx of appendectomy Hx of local excision of skin lesion Hx of tonsillectomy Family History Family History Sibling Carcinoma of colon, Onset Age: 59 Father Family history of cardiovascular disease, Onset Age: 83 Social History Social History Smoking status: Former smoker Alcohol intake: never Substance use: never Gender identity (if verbalized by the patient): Male Spiritual care concerns: No Mod Sed Physical Exam Physical Exam Pre Procedural Exam: Normal: Appearance, Eyes, Ears, Nose, Neck ( supple, normal range of motion), Throat ( posterior hypopharynx clear, nonerythematous), Airway ( no obstruction, normal anatomy), Lungs ( Clear to auscultation bilaterally), Heart Size, Heart Rate, Heart Rhythm, Neuro Exam, Abdomen, Liver, Kidneys, Breasts, Extremities and Skin Hours since solid foods: 12 Hours since liquid intake: 12 Internal Medicine - PN: Obj Da Vital Signs Vital Signs: Vital Signs - 24 hr 01/26/20 12:00 01/26/20 14:28 01/26/20 16:00 Temperature 36.6 C 36.6 C Pulse Rate 68 85 67 Respiratory Rate 12 12 Blood Pressure 128/68 112/58 L Pulse Oximetry 97 96 01/26/20 18:23 01/26/20 19:51 01/26/20 20:00 Temperature 35.8 C L Pulse Rate 68 76 76 Re
--- NOTE | 2020-01-27 11:45 | PM.PROC ---
Procedure Note - Detailed Date of procedure: 01/27/20 Pre-op diagnosis: chest pain r/o NM unstable angina Post-op diagnosis: same Procedure performed: left heart catheterization with selective left and right coronary angiography with left ventriculography and hemodynamics Description of procedure: BRIEF HISTORY OF PRESENT ILLNESS: Patient is a pleasant 80 yo WM with a past medical history of CAD with previously placed stent x2 proximal LAD and proximal circ in 2004 with history of hypertension, dyslipidemia, and history tobacco abuse presented with progressive and then unstable angina. He ruled out for myocardial infarction with negative serial cardiac enzymes with subtle ST depression which resolved after admission. Since admission, he would experience mild exertional dyspnea which is unusual for him but no recurrent chest pain. coronary angiography was advised prior to discharge to delineate his coronary anatomy. PROCEDURES PERFORMED: 1. Left heart catheterization 2. Selective left and right coronary angiography 3. Left ventriculography and hemodynamics 4. Moderate/conscious sedation administration CATHETERS UTILIZED: Left coronary system- 5 [place] JL4 catheter Right coronary system- 5 [place] JR4 catheter Left ventriculography and hemodynamics- 5 [place] angled pigtail catheter PROCEDURE IN DETAIL: After verbal and written informed consent was obtained the patient, risks, benefits, and alternatives explained in detail the patient agreed to proceed with the plan of care as outlined above. The patient was subsequently brought to the cardiac catheterization lab, placed on the cardiac catheterization table, and prepped and draped in the usual sterile fashion. Utilizing approximately cc of 1% subcutaneous Lidocaine, the right groin was then locally anesthetized. Utilizing the modified Seldinger technique, a 5 [place] arterial vascular access sheath was inserted in the right common femoral artery easily and without complications. Through this access, coronary angiography was subsequently obtained in multiple standard re-projections. Following this, a 5 [place] angled pigtail catheter was advanced retrograde across aortic valve into the cavity of the left ventricle. Left ventriculography was performed and pullback across aortic valve was subsequently recorded. The vascular access sheath and angiographic catheters were flushed before and after catheter exchanges. At the conclusion of the diagnostic portion of the procedure, all angiographic guidewires and catheters were removed and the 5 [place] arterial vascular access sheath was then pulled and satisfactory hemostasis was achieved using manual compression. There no complications noted at the conclusion of the diagnostic portion of the study. MODERATE SEDATION/ANESTHESIA ADMINISTRATION: Patient reports no prior problems with sedation/anesthesia. Please see pre-sedation noted for physical examination documentation. Sedation start time was 1100 and end time was 1125 for a total intra-service/procedure face-face time of 25 minutes. A total of 1 mg intravenous Versed and a total of 50 mcg intravenous Fentanyl in multiple divided doses was administered for moderate sedation. Moderate sedation was administered by qualified/certified observer Jaret Flood RN under my supervision with intra-procedure [id number] observation and management throughout the entirety of the procedure. There were no other issues or complications and patient tolerated the procedure well. See post-anesthesia documentation. Anesthesia: local and other (moderate sedation) Surgeon: Tristen Almodovar MD Estimated blood loss (mL): 10 Drains: No Packing: No Pathology: none sent Complications: No immediate complications Condition: stable Disposition: other Findings: CORONARY ANGIOGRAPHY: The LEFT MAIN arose from the left coronary cusp and revealed significant distal haziness extending in the ostial LAD with an eccentric 99% osti
--- NOTE | 2020-01-27 14:20 | PC.NURSE ---
Patient returned to room following cardiac cath. Report received from LAURA Navas and LAURA Brady.
--- NOTE | 2020-01-27 14:59 | PM.TDS ---
Transfer Discharge Sum: Prov Provider Date of admission: 01/25/20 01:16 Primary care physician: Doug Walker MD Admitting clinician: Antelmo Urena MD Consults: 01/25/20 02:54 Consulting Provider: Tristen Almodovar scallop binder/MD group to consult: Cardiology DS: Admitting Diagnosis Admitting Diagnosis Admitting Diagnosis: Chest pain, unspecified DS: Discharge Diagnosis Discharge Diagnosis (1) CAD (coronary artery disease): Qualifiers: Coronary Disease-Associated Artery/Lesion type: [place] artery [place] vs. transplanted heart: [place] heart Associated angina: with unstable angina Qualified Code(s): I25.110 - Atherosclerotic heart disease of [place] coronary artery with unstable angina pectoris Code(s): I25.10 - Atherosclerotic heart disease of [place] coronary artery without angina pectoris Status: Acute Assessment and Plan: Date of Service 01/27/20 Mr. Michele is a very pleasant 80 yo M with history of coronary artery disease (3 stents in 2004), hypertension, dyslipidemia presented to [facility] ED for evaluation of chest pain. He described intermittent chest pressure with exertional dyspnea. Over the past 2 weeks he noticed his symptoms were progressing and he was having difficulty walking distances, as he was previously walking 2 to 4 miles per day. Serial troponins were negative and subtle ST depressions were noted. Cardiology was consulted and he was evaluated by Dr Almodovar. He was maintained on his home metoprolol, lisinopril, statin therapy, and ASA. Imdur was added. Given the progression of his symptom, he stayed over the weekend and underwent cardiac catheterization today 01/27/[address] Almodovar which demonstrated the following findings: 1. Two vessel severe obstructive coronary disease with 99% and 90% ostial LAD and ostial circumflex stenosis respectively, proximal 99% circumflex stenosis consistent with a left main equivalent. 60-70% mid RCA stenosis. 2. Preserved LV systolic function ejection fraction of 65-70% without wall motion abnormalities 3. No hemodynamically significant aortic stenosis with mild elevation LV end-diastolic filling pressures. Dr Almodovar has spoken with Dr Mariscal at [facility] who has accepted the patient in transfer for CABG. He is hemodynamically stable for transfer this afternoon and his latest vital signs are: Last Vital Signs Temp 96.3 F L 01/27/20 14:28 Pulse 82 01/27/20 14:28 Resp 20 01/27/20 14:28 BP 156/77 H 01/27/20 14:28 Pulse Ox 97 01/27/20 14:28 (2) Progressive angina: Code(s): I20.0 - Unstable angina Status: Acute Assessment and Plan: See above. (3) Hypertension: Qualifiers: Hypertension type: essential hypertension Qualified Code(s): I10 - Essential (primary) hypertension Code(s): I10 - Essential (primary) hypertension Status: Chronic Assessment and Plan: Last BP 156/77. He remains on his home metoprolol and lisinopril, new imdur. (4) Hyperlipidemia: Qualifiers: Hyperlipidemia type: unspecified Qualified Code(s): E78.5 - Hyperlipidemia, unspecified Code(s): E78.5 - Hyperlipidemia, unspecified Status: Chronic Assessment and Plan: Maintained on statin therapy. Transfer Discharge Sum: Med Medications Active and Home Medications: Home Medications metoprolol succinate 25 mg tablet,extended release 24 hr 25 mg PO DAILY #90 tablet 06/03/19 [Rx Confirmed 01/25/20] cholecalciferol (vitamin D3) [Vitamin D3] 1,000 unit PO DAILY 06/05/19 [History Confirmed 01/25/20] multivitamin 1 tablet PO DAILY 06/05/19 [History Confirmed 01/25/20] lisinopril 5 mg tablet 5 mg PO DAILY #90 tablet 07/05/19 [Rx Confirmed 01/25/20] atorvastatin 10 mg tablet See Rx Instructions .ROUTE .COMPLEX #90 tablet 07/22/19 [Rx Confirmed 01/24
== END 2020-01-27 19:37 | disposition critical access hospital (66) ==
LOC: ANHED 01-25 01:17 → ANHIMU 01-25 01:35
PROVIDERS: Internal Medicine Cardiovascular Disease; Admitting Provider Family Medicine; Emergency Provider General Practice; PCP Emergency Medicine; Visit Provider Physician Assistant
PROC: 4A023N7 Measurement of Cardiac Sampling and Pressure, Left Heart, Percutaneous Approach (ICD-10-PCS; CPT 93452; principal; 2020-01-27 09:30)
DX: I25.110 Atherosclerotic heart disease of native coronary artery with unstable angina pectoris (principal); R06.02 Shortness of breath; I10 Essential (primary) hypertension; E78.5 Hyperlipidemia, unspecified; Z95.5 Presence of coronary angioplasty implant and graft; Z79.82 Long term (current) use of aspirin; Z87.891 Personal history of nicotine dependence
CPT/HCPCS: 36415; 71046; 80048; 80061; 83735; 84100; 84484; 85025; 85610; 85730; 93005; 93306; 93458; 99285; A9270; C1887; C1894; G0378; J0461; J1644; J2250; J3010; J7040

== ENCOUNTER 2020-03-02 12:03 | Outpatient (CLI) | payer MEDICARE, SELFPAY ==
--- NOTE | ~2020-03-02 | XR_ITS ---
XR chest 2V DATE: 03/02/2020 12:24 INDICATION: Shortness of breath on exertion. Right diaphragm elevation/paralysis TECHNIQUE: PA and lateral views COMPARISON: 01/25/2020 PA and lateral chest FINDINGS: Status post sternotomy/CABG. There is moderate elevation of the right leaf of the diaphragm. There are bibasilar infiltrates and/or atelectasis. Normal heart size. There are small bilateral pleural effusions. No hilar or mediastinal enlargement . Degenerative change of the thoracic spine. IMPRESSION: Moderate elevation of the right leaf of the diaphragm Mild bibasilar infiltrate and/or atelectasis Reviewed, dictated and finalized at location A.
== END 2020-03-02 12:04 | disposition home or self-care (01) ==
LOC: ANHIMG 12:09
PROVIDERS: PCP Emergency Medicine; Visit Provider Internal Medicine Cardiovascular Disease
DX: R06.00 Dyspnea, unspecified (principal); R91.8 Other nonspecific abnormal finding of lung field
CPT/HCPCS: 71046

== ENCOUNTER 2020-04-02 06:41 | Outpatient (CLI) | payer MEDICARE, SELFPAY ==
[2020-04-02 07:10] LABS: Hematocrit 37.1 % (42.0-52.0); Hemoglobin 12.1 g/dL (14.0-18.0); Mean Corpuscular HGB Conc 32.6 g/dl (32-36); Mean Corpuscular Hemoglobin 31.5 pg (26-34); Mean Corpuscular Volume 96.6 fl (80-100); Mean Platelet Volume 9.1 fl (7.4-10.4); Platelet Count Result 238 k/mm3 (150-375); Red Blood Count 3.84 M/mm3 (4.6-6.20); Red Cell Distribution Width 13.9 % (11.5-14.5); White Blood Count 5.7 K/mm3 (4.5-10.0)
[2020-04-02 07:21] LABS: Alanine Aminotransferase 20 U/L (4-50); Albumin Level 4.1 g/dL (3.5-5.1); Alkaline Phosphatase 71 U/L (38-126); Anion Gap 6 mmol/L (8-16); Aspartate Amino Transferase 31 U/L (17-59); Bilirubin,Total 0.3 mg/dL (0.2-1.3); Blood Urea Nitrogen 27 mg/dL (9-20); Calcium 10.2 mg/dL (8.4-10.2); Carbon Dioxide 26 mmol/L (22-30); Chloride 105 mmol/L (98-107); Cholesterol 195 mg/dL (0-200); Estimated Glomerular Filt Rate > 60; Glucose 104 mg/dL (75-110); HDL Direct 57 mg/dL; Potassium 4.4 mmol/L (3.4-5.0); Sodium 137 mmol/L (137-145); Triglycerides 72 mg/dL (<150)
[2020-04-02 07:32] LABS: LDL Cholesterol Direct 105 mg/dL
== END 2020-04-02 06:42 | disposition home or self-care (01) ==
PROVIDERS: PCP Emergency Medicine; Referring Provider Nurse Practitioner Adult Health; Visit Provider Emergency Medicine
DX: E78.5 Hyperlipidemia, unspecified (principal); R53.83 Other fatigue; D64.9 Anemia, unspecified
CPT/HCPCS: 36415; 80053; 80061; 85027

== ENCOUNTER 2020-04-07 09:22 | Outpatient (CLI) | payer MEDICARE, SELFPAY ==
--- NOTE | ~2020-04-07 | US_ITS ---
EXAMINATION: US carotid duplex BI DATE: 04/07/2020 10:34 INDICATION: Carotid bruit. TECHNIQUE: Grayscale, color Doppler, and pulsed Doppler images of the cervical carotid arteries were obtained. The degree of vessel stenosis is placed in one of the following categories: normal, <50%, 5 0-69%, >=70% but less than near-occlusion, near-occlusion, or total occlusion. Note that percent sten osis relative to normal distal artery lumen diameter is indirectly measured from velocity measurement s as described by Mark, et al. Radiology 2003; 229:[id number]. Notes: Normal: Peak systolic velocity <125 centimeters/sec and no plaque <50%. Peak systolic velocity <125 ( EDV <40; ICA/CCA PSV ratio <2.0; used these factors only a tandem lesions or low cardiac output or co ntralateral disease) 50-69 %: PSV 125-230 (EDV 40-100; ratio 2-4) >= 70% but less than near occlusion: PSV greater than 230 (EDV > 100; ratio> 4.0) Near Occlusion: PSV that is variable; markedly narrowed lumen Occlusion: Absent flow on color/spectral Doppler and no lumen on vivar scale. COMPARISON: 01/15/2013. FINDINGS: RIGHT: The right common carotid artery (CCA) peak systolic velocity (PSV) is 59 cm/s. The right internal car otid artery (ICA) PSV is 121 cm/s. The right ICA end-diastolic velocity (EDV) is 28 cm/s. The right I CA/CCA PSV ratio is 2. The external carotid artery (ECA) PSV is 111 cm/s. There is antegrade flow in the right vertebral artery. LEFT: The left CCA PSV is 107 cm/s. The left ICA PSV is 156 cm/s. The left ICA EDV is 39 cm/s. The left ICA /CCA PSV ratio is 1.45. The ECA PSV is 100 cm/s. There is antegrade flow in the left vertebral arter y. IMPRESSION: 1. Less than 50% stenosis in the right internal carotid artery by sonographic criteria. 2. 50-69% stenosis in the left internal carotid artery by sonographic criteria. Reviewed, dictated and finalized at location B. IMPRESSION: 1. Less than 50% stenosis in the right internal carotid artery by sonographic c riteria. 2. 50-69% stenosis in the left internal carotid artery by sonographic criteria.
== END 2020-04-07 09:23 | disposition home or self-care (01) ==
LOC: ANHIMG 09:29
PROVIDERS: PCP Emergency Medicine; Visit Provider Thoracic Surgery (Cardiothoracic Vascular Surgery)
DX: I65.23 Occlusion and stenosis of bilateral carotid arteries (principal)
CPT/HCPCS: 93880

== ENCOUNTER 2020-07-02 06:53 | Outpatient (CLI) | payer MEDICARE, SELFPAY ==
[2020-07-02 07:38] LABS: Alanine Aminotransferase 25 U/L (4-50); Albumin Level 3.8 g/dL (3.5-5.1); Alkaline Phosphatase 59 U/L (38-126); Anion Gap 1 mmol/L (8-16); Aspartate Amino Transferase 35 U/L (17-59); Bilirubin,Total 0.4 mg/dL (0.2-1.3); Blood Urea Nitrogen 38 mg/dL (9-20); Calcium 10.3 mg/dL (8.4-10.2); Carbon Dioxide 30 mmol/L (22-30); Chloride 107 mmol/L (98-107); Cholesterol 162 mg/dL (0-200); Estimated Glomerular Filt Rate > 60; Glucose 102 mg/dL (75-110); HDL Direct 53 mg/dL; Sodium 138 mmol/L (137-145); Triglycerides 55 mg/dL (<150)
[2020-07-02 07:49] LABS: LDL Cholesterol Direct 91 mg/dL
== END 2020-07-02 06:54 | disposition home or self-care (01) ==
LOC: ANHLAB 06:55
PROVIDERS: PCP Emergency Medicine; Visit Provider Emergency Medicine
DX: E78.5 Hyperlipidemia, unspecified (principal)
CPT/HCPCS: 36415; 80053; 80061

== ENCOUNTER 2020-07-15 06:59 | Outpatient (CLI) | payer MEDICARE, SELFPAY ==
--- NOTE | ~2020-07-15 | XR_ITS ---
EXAMINATION: XR lumbar spine 2-3V EXAM DATE: 07/15/2020 07:38 INDICATION: no known injury no pain to hips slight pain to back after . TECHNIQUE: Lumber spine frontal, lateral, lateral L5-S1 projections for interpretation. There is no prior study for comparison. FINDINGS: There is mild lumbar dextroscoliosis. Moderate disc disease at L5-S1, mild to moderate at the other lumbar levels. There are small to moderate size endplate osteophytes. Mild to moderate abdo elza aortic arterial sclerosis. Mild to moderate lumbar facet arthropathy. There is about 5 mm retro listhesis L5 on S1. The vertebral bodies are otherwise aligned. Vertebral body heights relatively wel l-maintained. Sacrum, sacroiliac joints, sacral arcuate lines are intact. IMPRESSION: 1. Mild to moderate lumbar spondylosis. 2. Mild dextroscoliosis. Reviewed, dictated and finalized at location B. LAYER
--- NOTE | ~2020-07-15 | XR_ITS ---
EXAMINATION: XR hip BI 2V w AP pelvis EXAM DATE: 07/15/2020 07:38 INDICATION: M54.9 - Dorsalgia, unspecified . TECHNIQUE: Each hip imaged independently (separate right and also left hip) 'frog leg' and frontal p rojections for interpretation. Frontal projection pelvis. There is no prior study for comparison. FINDINGS: No radiographic evidence of hip avascular necrosis. There is mild symmetric bilateral hip primary osteoarthritis. There are no acute fractures or dislocations identified. There is no subcuta neous gas. The soft tissue is unremarkable. There are no radiopaque foreign bodies. IMPRESSION: Mild bilateral hip osteoarthritis. Reviewed, dictated and finalized at location B. [employer] SCIENCE EXAMINER
[2020-07-23 05:59] LABS: Creatinine, Random Urine 161 mg/dL (20-320); Total Protein/Creatinine Ratio 99 mg/g creat (22-128)
== END 2020-07-15 07:00 | disposition home or self-care (01) ==
PROVIDERS: PCP Emergency Medicine; Visit Provider Emergency Medicine
DX: D64.9 Anemia, unspecified (principal); M54.9 Dorsalgia, unspecified; G89.29 Other chronic pain; E83.52 Hypercalcemia; M16.0 Bilateral primary osteoarthritis of hip; M47.816 Spondylosis without myelopathy or radiculopathy, lumbar region; M41.86 Other forms of scoliosis, lumbar region
CPT/HCPCS: 36415; 72100; 73521; 82570; 84155; 84156; 84165; 84166; 86334

== ENCOUNTER 2020-09-22 07:18 | Outpatient (CLI) | payer MEDICARE, SELFPAY ==
[2020-09-22 08:11] LABS: Alanine Aminotransferase 27 U/L (4-50); Albumin Level 4.4 g/dL (3.5-5.1); Alkaline Phosphatase 59 U/L (38-126); Aspartate Amino Transferase 36 U/L (17-59); Bilirubin,Total 0.4 mg/dL (0.2-1.3); Cholesterol 175 mg/dL (0-200); HDL Direct 55 mg/dL; Triglycerides 56 mg/dL (<150)
[2020-09-22 08:23] LABS: LDL Cholesterol Direct 99 mg/dL
== END 2020-09-22 07:19 | disposition home or self-care (01) ==
PROVIDERS: PCP Emergency Medicine; Visit Provider Internal Medicine Cardiovascular Disease
DX: E78.5 Hyperlipidemia, unspecified (principal)
CPT/HCPCS: 36415; 80061; 80076

== ENCOUNTER 2021-01-04 06:42 | Outpatient (CLI) | payer MEDICARE, SELFPAY ==
[2021-01-04 07:32] LABS: Alanine Aminotransferase 22 U/L (4-50); Anion Gap 5 mmol/L (8-16); Aspartate Amino Transferase 35 U/L (17-59); Bilirubin,Total 0.5 mg/dL (0.2-1.3); Blood Urea Nitrogen 32 mg/dL (9-20); Calcium 10.3 mg/dL (8.4-10.2); Carbon Dioxide 29 mmol/L (22-30); Chloride 105 mmol/L (98-107); Estimated Glomerular Filt Rate > 60; Glucose 106 mg/dL (75-110); Potassium 4.6 mmol/L (3.4-5.0); Sodium 139 mmol/L (137-145); Triglycerides 59 mg/dL (<150)
[2021-01-04 07:33] LABS: Alkaline Phosphatase 56 U/L (38-126); Cholesterol 141 mg/dL (0-200); HDL Direct 52 mg/dL
[2021-01-04 07:43] LABS: LDL Cholesterol Direct 66 mg/dL
== END 2021-01-04 06:43 | disposition home or self-care (01) ==
PROVIDERS: PCP Emergency Medicine; Referring Provider Internal Medicine Cardiovascular Disease; Visit Provider Emergency Medicine
DX: I25.10 Atherosclerotic heart disease of native coronary artery without angina pectoris (principal); E78.5 Hyperlipidemia, unspecified; I10 Essential (primary) hypertension
CPT/HCPCS: 36415; 80053; 80061

== ENCOUNTER 2021-04-22 07:01 | Outpatient (CLI) | payer MEDICARE, SELFPAY ==
[2021-04-22 08:18] LABS: Alanine Aminotransferase 30 U/L (4-50); Albumin Level 4.5 g/dL (3.5-5.1); Alkaline Phosphatase 63 U/L (38-126); Anion Gap 8 mmol/L (8-16); Aspartate Amino Transferase 36 U/L (17-59); Bilirubin,Total 0.7 mg/dL (0.2-1.3); Blood Urea Nitrogen 34 mg/dL (9-20); Calcium 10.8 mg/dL (8.4-10.2); Carbon Dioxide 27 mmol/L (22-30); Chloride 105 mmol/L (98-107); Cholesterol 150 mg/dL (0-200); Estimated Glomerular Filt Rate > 60; Glucose 104 mg/dL (65-110); HDL Direct 52 mg/dL; Potassium 4.9 mmol/L (3.4-5.0); Sodium 140 mmol/L (137-145); Triglycerides 49 mg/dL (<150)
[2021-04-22 08:29] LABS: LDL Cholesterol Direct 78 mg/dL
== END 2021-04-22 07:02 | disposition home or self-care (01) ==
LOC: ANHLAB 07:04
PROVIDERS: PCP Emergency Medicine; Visit Provider Emergency Medicine
DX: I10 Essential (primary) hypertension (principal)
CPT/HCPCS: 36415; 80053; 80061

== ENCOUNTER 2021-08-02 07:00 | Outpatient (CLI) | payer MEDICARE, SELFPAY ==
[2021-08-02 07:58] LABS: LDL Cholesterol Direct 65 mg/dL
[2021-08-02 08:02] LABS: Alanine Aminotransferase 37 U/L (4-50); Albumin Level 4.2 g/dL (3.5-5.1); Alkaline Phosphatase 59 U/L (38-126); Anion Gap 4 mmol/L (8-16); Aspartate Amino Transferase 36 U/L (17-59); Bilirubin,Total 0.7 mg/dL (0.2-1.3); Blood Urea Nitrogen 25 mg/dL (9-20); Calcium 10.5 mg/dL (8.4-10.2); Carbon Dioxide 30 mmol/L (22-30); Chloride 102 mmol/L (98-107); Cholesterol 131 mg/dL (0-200); Estimated Glomerular Filt Rate > 60; Glucose 108 mg/dL (65-110); HDL Direct 49 mg/dL; Potassium 5.1 mmol/L (3.4-5.0); Sodium 136 mmol/L (137-145); Triglycerides 64 mg/dL (<150)
== END 2021-08-02 07:01 | disposition home or self-care (01) ==
PROVIDERS: PCP Emergency Medicine; Visit Provider Emergency Medicine
DX: I10 Essential (primary) hypertension (principal)
CPT/HCPCS: 36415; 80053; 80061

== ENCOUNTER 2021-11-01 06:57 | Outpatient (CLI) | payer MEDICARE, SELFPAY ==
[2021-11-01 07:32] LABS: Alanine Aminotransferase 28 U/L (4-50); Albumin Level 4.3 g/dL (3.5-5.1); Alkaline Phosphatase 62 U/L (38-126); Anion Gap 3 mmol/L (8-16); Aspartate Amino Transferase 40 U/L (17-59); Bilirubin,Total 0.6 mg/dL (0.2-1.3); Blood Urea Nitrogen 30 mg/dL (9-20); Calcium 10.3 mg/dL (8.4-10.2); Carbon Dioxide 30 mmol/L (22-30); Chloride 106 mmol/L (98-107); Cholesterol 137 mg/dL (0-200); Estimated Glomerular Filt Rate > 60; Glucose 101 mg/dL (65-110); HDL Direct 48 mg/dL; Potassium 4.9 mmol/L (3.4-5.0); Sodium 139 mmol/L (137-145); Triglycerides 58 mg/dL (<150)
[2021-11-01 07:43] LABS: LDL Cholesterol Direct 57 mg/dL
== END 2021-11-01 06:58 | disposition home or self-care (01) ==
LOC: ANHLAB 06:58
PROVIDERS: PCP Emergency Medicine; Visit Provider Emergency Medicine
DX: E78.5 Hyperlipidemia, unspecified (principal); I10 Essential (primary) hypertension
CPT/HCPCS: 36415; 80053; 80061

== ENCOUNTER 2022-03-07 07:02 | Outpatient (CLI) | payer MEDICARE, SELFPAY ==
[2022-03-07 07:58] LABS: Alanine Aminotransferase 25 U/L (6-50); Albumin Level 3.9 g/dL (3.5-5.1); Alkaline Phosphatase 71 U/L (38-126); Anion Gap 6 mmol/L (8-16); Aspartate Amino Transferase 33 U/L (17-59); Bilirubin,Total 0.5 mg/dL (0.2-1.3); Blood Urea Nitrogen 21 mg/dL (9-20); Calcium 10.3 mg/dL (8.4-10.2); Carbon Dioxide 27 mmol/L (22-30); Chloride 100 mmol/L (98-107); Cholesterol 133 mg/dL (0-200); Estimated Glomerular Filt Rate > 60; Glucose 103 mg/dL (65-110); HDL Direct 51 mg/dL; Potassium 4.6 mmol/L (3.4-5.0); Sodium 133 mmol/L (137-145); Triglycerides 68 mg/dL (<150)
[2022-03-07 08:09] LABS: LDL Cholesterol Direct 73 mg/dL
== END 2022-03-07 07:03 | disposition home or self-care (01) ==
LOC: ANHLAB 07:04
PROVIDERS: PCP Emergency Medicine; Visit Provider Emergency Medicine
DX: I10 Essential (primary) hypertension (principal)
CPT/HCPCS: 36415; 80053; 80061

== ENCOUNTER 2022-03-18 06:48 | Outpatient (CLI) | payer MEDICARE, SELFPAY ==
[2022-03-18 07:13] LABS: Basophils Absolute Auto 0.1 K/mm3 (0.0-0.1); Basophils Percent Auto 0.8 % (0.2-1.2); Eosinophils Absolute Auto 0.4 K/mm3 (0-0.3); Eosinophils Percent Auto 5.9 % (0-4.4); Hemoglobin 14.4 g/dL (14.0-18.0); Immature Granulocyte Absolute 0.02 K/mm3 (0.00-0.031); Immature Granulocyte Percent A 0.3 % (0-0.5); Lymphocytes Absolute Auto 2.04 K/mm3 (0.9-3.2); Lymphocytes Percent Auto 32.5 % (18.3-44.2); Mean Corpuscular HGB Conc 33.5 g/dl (32-36); Mean Corpuscular Volume 101.7 fl (80-100); Mean Platelet Volume 9.2 fl (7.4-10.4); Monocytes Absolute Auto 0.7 K/mm3 (0.1-0.6); Monocytes Percent Auto 10.5 % (2.6-8.5); Neutrophils Absolute Auto 3.1 K/mm3 (1.3-6.7); Platelet Count Result 200 k/mm3 (150-375); Red Blood Count 4.23 M/mm3 (4.6-6.20); Red Cell Distribution Width 12.2 % (11.5-14.5); White Blood Count 6.3 K/mm3 (4.5-10.0)
== END 2022-03-18 06:49 | disposition home or self-care (01) ==
PROVIDERS: PCP Emergency Medicine; Visit Provider Emergency Medicine
DX: R53.83 Other fatigue (principal)
CPT/HCPCS: 36415; 85025

== ENCOUNTER 2022-04-06 07:50 | Outpatient (CLI) | payer MEDICARE, SELFPAY | END 2022-04-06 07:51 | disposition home or self-care (01) | LOC: ANHAUDIO 07:51 | PROVIDERS: PCP Emergency Medicine; Visit Provider Emergency Medicine | DX: H91.90 Unspecified hearing loss, unspecified ear (principal) | CPT/HCPCS: 92557; 92567 ==

== ENCOUNTER 2022-06-14 06:51 | Outpatient (CLI) | payer MEDICARE, SELFPAY ==
[2022-06-14 07:30] LABS: Alanine Aminotransferase 40 U/L (6-50); Albumin Level 4.1 g/dL (3.5-5.1); Alkaline Phosphatase 76 U/L (38-126); Anion Gap 5 mmol/L (8-16); Aspartate Amino Transferase 41 U/L (17-59); Bilirubin,Total 0.4 mg/dL (0.2-1.3); Blood Urea Nitrogen 26 mg/dL (9-20); Calcium 9.8 mg/dL (8.4-10.2); Carbon Dioxide 28 mmol/L (22-30); Chloride 105 mmol/L (98-107); Cholesterol 125 mg/dL (0-200); Estimated Glomerular Filt Rate > 60; Glucose 102 mg/dL (65-110); HDL Direct 50 mg/dL; Potassium 4.8 mmol/L (3.4-5.0); Sodium 138 mmol/L (137-145); Triglycerides 67 mg/dL (<150)
[2022-06-14 07:40] LABS: LDL Cholesterol Direct 48 mg/dL
== END 2022-06-14 06:52 | disposition home or self-care (01) ==
PROVIDERS: PCP Emergency Medicine; Visit Provider Emergency Medicine
DX: E78.5 Hyperlipidemia, unspecified (principal); I10 Essential (primary) hypertension
CPT/HCPCS: 36415; 80053; 80061

== ENCOUNTER 2022-10-10 07:06 | Outpatient (CLI) | payer MEDICARE, SELFPAY ==
[2022-10-10 09:22] LABS: Alanine Aminotransferase 38 U/L (6-50); Albumin Level 4.4 g/dL (3.5-5.1); Alkaline Phosphatase 74 U/L (38-126); Anion Gap 2 mmol/L (8-16); Aspartate Amino Transferase 38 U/L (17-59); Bilirubin,Total 0.6 mg/dL (0.2-1.3); Blood Urea Nitrogen 24 mg/dL (9-20); Calcium 10.3 mg/dL (8.4-10.2); Carbon Dioxide 30 mmol/L (22-30); Chloride 104 mmol/L (98-107); Cholesterol 130 mg/dL (0-200); Estimated Glomerular Filt Rate > 60; Glucose 98 mg/dL (65-110); HDL Direct 56 mg/dL; Potassium 4.9 mmol/L (3.4-5.0); Sodium 136 mmol/L (137-145); Triglycerides 62 mg/dL (<150)
[2022-10-10 09:33] LABS: LDL Cholesterol Direct 57 mg/dL
== END 2022-10-10 07:07 | disposition home or self-care (01) ==
PROVIDERS: PCP Emergency Medicine; Visit Provider Emergency Medicine
DX: E78.5 Hyperlipidemia, unspecified (principal)
CPT/HCPCS: 36415; 80053; 80061

== ENCOUNTER 2022-10-17 09:15 | Outpatient (CLI) | payer MEDICARE, SELFPAY ==
--- NOTE | ~2022-10-17 | CT_ITS ---
EXAMINATION: CTA brain carotid DATE: 10/17/2022 09:45 INDICATION: Bilateral carotid stenosis. TECHNIQUE: Computed tomographic angiography (CTA) of the head was performed without and with 100 mL O mnipaque-350 intravenous contrast. CTA of the neck was performed with intravenous contrast. Automated exposure control and iterative reconstruction technique were employed. The dose-length product was 2 196.81 mGy-cm. Maximum intensity projection and volume rendered 3D-reconstructions were created by yessica card technologist on a separate workstation. COMPARISON: Ultrasound 04/07/2020, neck MRA 03/06/2013 FINDINGS: HEAD CTA: There are scattered areas of low attenuation in the cerebral white matter, which is within normal limits for the patient's age. There is no intracranial hemorrhage, acute infarction, or abnorm al intracranial mass lesion. The ventricles are normal in size. There are likely changes of ocular le ns replacement surgeries. There is mucosal thickening in the paranasal sinuses. The mastoid air cells are normal. Right vertebral artery is dominant. There is no significant stenosis of basilar artery o r the posterior cerebral arteries. There is no significant stenosis of the intracranial internal mcnamara tid arteries or anterior or middle cerebral arteries. Right A1 anterior cerebral artery segment is ab sent, a normal variant. The posterior communicating arteries are normal. Anterior communicating arter y is normal. There is no aneurysm. NECK CTA: There are no pathologically enlarged lymph nodes. There is moderate stenosis of proximal ri ght vertebral artery. 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 There is plaque in t he proximal internal carotid arteries. There is 47% stenosis of the proximal right internal carotid a rtery relative to normal distal artery lumen diameter (NASCET criteria). There is 23% stenosis of the proximal left internal carotid artery relative to normal distal artery lumen diameter. There is leann re cervical spondylosis. IMPRESSION: 1. Normal aging brain. 2. No aneurysm or significant intracranial arterial stenosis. 3. 47% stenosis of the proximal right internal carotid artery relative to normal distal artery lumen diameter (NASCET criteria). 4. 23% stenosis of the proximal left internal carotid artery relative to normal distal artery lumen d iameter. 5. Moderate stenosis of proximal right vertebral artery. 6. 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 Reviewed, dictated and finalized at location A. IMPRESSION: 1. Normal aging brain. 2. No aneurysm or significant intracranial arterial stenosis. 3. 47% stenosis of the proximal right internal carotid artery relative to isael l distal artery lumen diameter (NASCET criteria). 4. 23% stenosis of the proximal left internal carotid artery relative to normal distal artery lumen diameter. 5. Moderate stenosis of proximal right vertebral artery. 6. 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
== END 2022-10-17 09:16 | disposition home or self-care (01) ==
PROVIDERS: PCP Emergency Medicine; Visit Provider Internal Medicine Cardiovascular Disease
DX: I25.10 Atherosclerotic heart disease of native coronary artery without angina pectoris (principal); I65.23 Occlusion and stenosis of bilateral carotid arteries; I65.02 Occlusion and stenosis of left vertebral artery; I10 Essential (primary) hypertension; E78.2 Mixed hyperlipidemia; Z95.1 Presence of aortocoronary bypass graft
CPT/HCPCS: 70496; 70498; Q9967

== ENCOUNTER 2023-01-10 06:50 | Outpatient (CLI) | payer MEDICARE, SELFPAY ==
[2023-01-10 07:55] LABS: Alanine Aminotransferase 33 U/L (6-50); Albumin Level 4.1 g/dL (3.5-5.1); Alkaline Phosphatase 59 U/L (38-126); Anion Gap 2 mmol/L (8-16); Aspartate Amino Transferase 37 U/L (17-59); Bilirubin,Total 0.5 mg/dL (0.2-1.3); Blood Urea Nitrogen 18 mg/dL (9-20); Calcium 9.9 mg/dL (8.4-10.2); Carbon Dioxide 33 mmol/L (22-30); Chloride 99 mmol/L (98-107); Cholesterol 123 mg/dL (0-200); Estimated Glomerular Filt Rate > 60; Glucose 99 mg/dL (65-110); HDL Direct 53 mg/dL; Sodium 134 mmol/L (137-145); Triglycerides 56 mg/dL (<150)
[2023-01-10 08:06] LABS: LDL Cholesterol Direct 56 mg/dL
== END 2023-01-10 06:51 | disposition home or self-care (01) ==
LOC: ANHLAB 06:51
PROVIDERS: PCP Emergency Medicine; Visit Provider Emergency Medicine
DX: E78.5 Hyperlipidemia, unspecified (principal); I10 Essential (primary) hypertension
CPT/HCPCS: 36415; 80053; 80061

== ENCOUNTER 2023-04-03 06:54 | Outpatient (CLI) | payer MEDICARE, SELFPAY ==
[2023-04-03 08:51] LABS: Alanine Aminotransferase 26 U/L (6-50); Alkaline Phosphatase 67 U/L (38-126); Anion Gap 5 mmol/L (8-16); Aspartate Amino Transferase 34 U/L (17-59); Bilirubin,Total 0.6 mg/dL (0.2-1.3); Blood Urea Nitrogen 18 mg/dL (9-20); Calcium 9.9 mg/dL (8.4-10.2); Carbon Dioxide 28 mmol/L (22-30); Chloride 100 mmol/L (98-107); Cholesterol 127 mg/dL (0-200); Estimated Glomerular Filt Rate > 60; Glucose 92 mg/dL (65-110); HDL Direct 48 mg/dL; Potassium 4.2 mmol/L (3.4-5.0); Sodium 133 mmol/L (137-145); Triglycerides 57 mg/dL (<150)
[2023-04-03 09:02] LABS: LDL Cholesterol Direct 59 mg/dL
== END 2023-04-03 06:55 | disposition home or self-care (01) ==
LOC: ANHLAB 06:55
PROVIDERS: PCP Emergency Medicine; Visit Provider Emergency Medicine
DX: E55.9 Vitamin D deficiency, unspecified (principal); E78.5 Hyperlipidemia, unspecified
CPT/HCPCS: 36415; 80053; 80061; 82306

== ENCOUNTER 2023-05-08 07:02 | Outpatient (CLI) | payer MEDICARE, SELFPAY ==
[2023-05-08 08:08] LABS: Anion Gap 2 mmol/L (8-16); Blood Urea Nitrogen 32 mg/dL (9-20); Calcium 10.4 mg/dL (8.4-10.2); Carbon Dioxide 30 mmol/L (22-30); Chloride 106 mmol/L (98-107); Estimated Glomerular Filt Rate > 60; Glucose 104 mg/dL (65-110); Potassium 4.3 mmol/L (3.4-5.0); Sodium 138 mmol/L (137-145)
== END 2023-05-08 07:03 | disposition home or self-care (01) ==
LOC: ANHLAB 07:03
PROVIDERS: PCP Emergency Medicine; Visit Provider Emergency Medicine
DX: I10 Essential (primary) hypertension (principal)
CPT/HCPCS: 36415; 80048

== ENCOUNTER 2023-06-26 07:08 | Outpatient (CLI) | payer MEDICARE, SELFPAY ==
[2023-06-26 08:02] LABS: Alanine Aminotransferase 29 U/L (6-50); Albumin Level 4.3 g/dL (3.5-5.1); Alkaline Phosphatase 82 U/L (38-126); Anion Gap 6 mmol/L (8-16); Aspartate Amino Transferase 34 U/L (17-59); Bilirubin,Total 0.6 mg/dL (0.2-1.3); Blood Urea Nitrogen 28 mg/dL (9-20); Calcium 10.6 mg/dL (8.4-10.2); Carbon Dioxide 27 mmol/L (22-30); Chloride 106 mmol/L (98-107); Cholesterol 151 mg/dL (0-200); Estimated Glomerular Filt Rate > 60; Glucose 97 mg/dL (65-110); HDL Direct 61 mg/dL; Potassium 4.3 mmol/L (3.4-5.0); Sodium 139 mmol/L (137-145); Triglycerides 66 mg/dL (<150)
[2023-06-26 08:13] LABS: LDL Cholesterol Direct 66 mg/dL
[2023-06-26 08:46] LABS: Vitamin D 25 Hydroxy 74.9 ng/mL
== END 2023-06-26 07:09 | disposition home or self-care (01) ==
PROVIDERS: PCP Emergency Medicine; Visit Provider Emergency Medicine
DX: E78.5 Hyperlipidemia, unspecified (principal); E55.9 Vitamin D deficiency, unspecified; I10 Essential (primary) hypertension
CPT/HCPCS: 36415; 80053; 80061; 82306

== ENCOUNTER 2023-10-09 07:00 | Outpatient (CLI) | payer MEDICARE, SELFPAY ==
[2023-10-09 08:03] LABS: Alanine Aminotransferase 33 U/L (6-50); Albumin Level 3.9 g/dL (3.5-5.1); Alkaline Phosphatase 63 U/L (38-126); Anion Gap 2 mmol/L (8-16); Aspartate Amino Transferase 42 U/L (17-59); Bilirubin,Total 0.7 mg/dL (0.2-1.3); Blood Urea Nitrogen 25 mg/dL (9-20); Calcium 10.5 mg/dL (8.4-10.2); Carbon Dioxide 30 mmol/L (22-30); Chloride 104 mmol/L (98-107); Cholesterol 132 mg/dL (0-200); Estimated Glomerular Filt Rate > 60; Glucose 108 mg/dL (65-110); HDL Direct 45 mg/dL; Potassium 4.6 mmol/L (3.4-5.0); Sodium 136 mmol/L (137-145); Triglycerides 82 mg/dL (<150)
[2023-10-09 08:14] LABS: LDL Cholesterol Direct 69 mg/dL
[2023-10-09 08:48] LABS: Vitamin D 25 Hydroxy 86.3 ng/mL
== END 2023-10-09 07:01 | disposition home or self-care (01) ==
LOC: ANHLAB 07:02
PROVIDERS: PCP Emergency Medicine; Visit Provider Emergency Medicine
DX: E78.5 Hyperlipidemia, unspecified (principal); E55.9 Vitamin D deficiency, unspecified; I10 Essential (primary) hypertension
CPT/HCPCS: 36415; 80053; 80061; 82306

== ENCOUNTER 2024-01-08 06:54 | Outpatient (CLI) | payer MEDICARE, SELFPAY ==
[2024-01-08 07:48] LABS: Alanine Aminotransferase 31 U/L (6-50); Albumin Level 4.2 g/dL (3.5-5.1); Alkaline Phosphatase 64 U/L (38-126); Anion Gap 4 mmol/L (4-12); Aspartate Amino Transferase 35 U/L (17-59); Bilirubin,Total 0.6 mg/dL (0.2-1.3); Blood Urea Nitrogen 26 mg/dL (9-20); Calcium 10.2 mg/dL (8.4-10.2); Carbon Dioxide 28 mmol/L (22-30); Chloride 105 mmol/L (98-107); Cholesterol 127 mg/dL (0-200); Estimated Glomerular Filt Rate > 60; Glucose 107 mg/dL (65-110); HDL Direct 56 mg/dL; Potassium 4.6 mmol/L (3.4-5.0); Sodium 137 mmol/L (137-145); Triglycerides 67 mg/dL (<150)
[2024-01-08 08:00] LABS: LDL Cholesterol Direct 63 mg/dL
[2024-01-08 08:19] LABS: Vitamin D 25 Hydroxy 68.9 ng/mL
== END 2024-01-08 06:55 | disposition home or self-care (01) ==
LOC: ANHLAB 06:56
PROVIDERS: PCP Emergency Medicine; Visit Provider Emergency Medicine
DX: E78.5 Hyperlipidemia, unspecified (principal); E55.9 Vitamin D deficiency, unspecified
CPT/HCPCS: 36415; 80053; 80061; 82306

== ENCOUNTER 2024-04-02 06:55 | Outpatient (CLI) | payer MEDICARE, SELFPAY ==
[2024-04-02 08:06] LABS: Alanine Aminotransferase 25 U/L (6-50); Albumin Level 4.2 g/dL (3.5-5.1); Alkaline Phosphatase 66 U/L (38-126); Anion Gap 8 mmol/L (4-12); Aspartate Amino Transferase 33 U/L (17-59); Bilirubin,Total 0.4 mg/dL (0.2-1.3); Blood Urea Nitrogen 34 mg/dL (9-20); Calcium 10.4 mg/dL (8.4-10.2); Carbon Dioxide 28 mmol/L (22-30); Chloride 100 mmol/L (98-107); Cholesterol 145 mg/dL (0-200); Estimated Glomerular Filt Rate > 60; Glucose 104 mg/dL (65-110); HDL Direct 56 mg/dL; Potassium 4.6 mmol/L (3.4-5.0); Sodium 136 mmol/L (137-145); Triglycerides 63 mg/dL (<150)
[2024-04-02 08:18] LABS: LDL Cholesterol Direct 66 mg/dL
[2024-04-02 11:31] LABS: Vitamin D 25 Hydroxy 52.8 ng/mL
== END 2024-04-02 06:56 | disposition home or self-care (01) ==
LOC: ANHLAB 06:57
PROVIDERS: PCP Emergency Medicine; Visit Provider Emergency Medicine
DX: E78.5 Hyperlipidemia, unspecified (principal); E55.9 Vitamin D deficiency, unspecified
CPT/HCPCS: 36415; 80053; 80061; 82306

== ENCOUNTER 2024-05-12 12:50 | Emergency (ER) | payer MEDICARE, SELFPAY ==
--- NOTE | ~2024-05-12 | CT_ITS ---
CT abdomen pelvis w con Ordering provider: Padma Byrne PA-C History: 84 years Male with . abd pain . Comparison: None. Technique: CT abdomen and pelvis with IV and without oral contrast. Automated exposure control and it erative reconstruction technique were employed. The dose-length product was 440.71 mGy-cm. 100 mL Omn ipaque 350 was given IV. Findings: VISUALIZED LOWER CHEST: Normal. UPPER ABDOMINAL ORGANS: Liver: Normal. Gallbladder: Hyperdense small densities are seen in the fundus suggestive of stones. Spleen: Normal. Stomach/duodenum: Small sliding hiatus hernia. Pancreas: Normal. Adrenals: Normal. Kidneys: Stone in the left ureterovesical junction measuring 6 mm with left hydroureter and hydroneph rotic changes. Small cyst in the left kidney lower pole. PELVIC ORGANS: The bladder shows calcifications in the right side posteriorly suggestive of stones. Enlarged prostate with prominent seminal vesicles. BOWEL AND MESENTERY: Colon: No evidence of diverticulitis. Enhancement in the wall of the rectum is seen which may indicat e inflammatory changes. Clinical correlation advised.Fluid is seen in the colon which is suggestive o f diarrhea. Enteritis is possible. Normal appendix. Small Bowel: Normal. No obstruction. Peritoneum/mesentery: No free air or free fluid. No mesenteric lymphadenopathy. RETROPERITONEUM: Mild atheromatous disease of the abdominal aorta. No retroperitoneal lymphadenopat hy. MUSCULOSKELETAL: Superficial soft tissues: Bilateral fat containing inguinal areas larger on the left side. The superf icial soft tissues are normal. Bones: Age appropriate degenerative changes of the spine. IMPRESSION: 1. Stone in the left ureterovesical junction with left hydroureter and hydronephrotic changes. 2. Calcifications in the right side of the urinary bladder suggestive of stones. 3. Possible cholelithiasis. 4. Fluid in the large bowel suggestive of diarrhea. Clinical correlation advised. 5. Enhancement in the area of the rectum which may indicate inflammatory changes. Clinical correlati on advised. 6. Small sliding hiatus hernia. 7. Bilateral inguinal fat containing hernia is larger on the left. Reviewed, dictated and finalized at location A. IMPRESSION: 1. Stone in the left ureterovesical junction with left hydroureter and hydrone phrotic changes. 2. Calcifications in the right side of the urinary bladder suggestive of stone s. 3. Possible cholelithiasis. 4. Fluid in the large bowel suggestive of diarrhea. Clinical correlation advis ed. 5. Enhancement in the area of the rectum which may indicate inflammatory hill es. Clinical correlation advised. 6. Small sliding hiatus hernia. 7. Bilateral inguinal fat containing hernia is larger on the left.
[2024-05-12 12:55] VITALS: BP 150/76; PULSE 103; RESP 15; TEMP 36.6; O2SAT 96
[2024-05-12 14:48] LABS: Basophils Percent Auto 0.2 % (0.2-1.2); Eosinophils Absolute Auto 0.1 K/mm3 (0-0.3); Eosinophils Percent Auto 0.5 % (0-4.4); Hematocrit 40.9 % (42.0-52.0); Hemoglobin 14.4 g/dL (14.0-18.0); Immature Granulocyte Absolute 0.06 K/mm3 (0.00-0.031); Immature Granulocyte Percent A 0.5 % (0-0.5); Lymphocytes Absolute Auto 1.41 K/mm3 (0.9-3.2); Lymphocytes Percent Auto 10.9 % (18.3-44.2); Mean Corpuscular HGB Conc 35.2 g/dl (32-36); Mean Corpuscular Volume 99.3 fl (80-100); Mean Platelet Volume 9.5 fl (7.4-10.4); Monocytes Percent Auto 7.8 % (2.6-8.5); Neutrophils Absolute Auto 10.3 K/mm3 (1.3-6.7); Neutrophils Percent Auto 80.1 % (45.5-73.1); Platelet Count Result 190 k/mm3 (150-375); Red Blood Count 4.12 M/mm3 (4.6-6.20); Red Cell Distribution Width 12.2 % (11.5-14.5); White Blood Count 12.9 K/mm3 (4.5-10.0)
--- NOTE | 2024-05-12 15:01 | ED.ABDPAIN ---
HPI - Abdominal Pain General Chief Complaint: Abdominal Pain Stated Complaint: abd pain Time Seen by Provider: 05/12/24 14:37 Source: patient Mode of arrival: ambulatory Limitations: no limitations History of Present Illness HPI narrative: This is an 84-year-old male that presents to the emergency department for lower abdominal pain. Ongoing intermittently since yesterday. Reports associated nausea. Denies fevers, vomiting, diarrhea, dysuria, or hematuria. Related Data Home Medications Medication Instructions Recorded Confirmed multivitamin 1 cap PO DAILY 04/14/20 05/12/24 aspirin 81 mg tablet,delayed 81 mg PO BID 04/12/24 05/12/24 release (Enteric Coated Aspirin) atorvastatin 10 mg tablet 40 mg PO .COMPLEX 04/12/24 05/12/24 metoprolol succinate 50 mg See Rx Instructions .Route .COMPLEX 04/12/24 05/12/24 tablet,extended release 24 hr Allergies Allergy/AdvReac Type Severity Reaction Status Date / Time No Known Allergies Allergy Unknown Verified 05/12/24 14:30 Review of Systems Review of Systems: CONSTITUTIONAL: Denies fever GASTROINTESTINAL: Reports abdominal pain, nausea. Denies vomiting, or diarrhea. GENITOURINARY: Denies dysuria or hematuria. All systems reviewed & are unremarkable except as noted in HPI and below PMFSH Past Medical History Medical History Atherosclerotic heart disease of [place] coronary artery with angina pectoris CAD (coronary artery disease) Chest pain Hematoma and contusion Hx of adenomatous colonic polyps Hyperkalemia Hyperlipidemia Hypertension Rosacea Squamous cell cancer of skin of forearm Vitamin D deficiency Surgical History Surgical History H/O cardiac catheterization Hx of appendectomy Hx of local excision of skin lesion Hx of tonsillectomy Family History Family History Sibling Carcinoma of colon, Onset Age: 59 Father Family history of cardiovascular disease, Onset Age: 83 Social History Social History Smoking status: Former smoker Second hand tobacco smoke exposure: No Alcohol intake: never Substance use: never Substance use type: does not use Do You Feel Safe in your Home?: Yes Lack of Transportation: No Lack of Food: Never True Current Housing: I Have Housing Concerned About Future Housing: No Difficulty Paying Gas/Electric Bills: No Difficulty Paying for Meds: No Currently Unemployed: No Education: High School Diploma/GED Difficulty w/ Childcare or Family Care: No Living arrangements: with family Occupation/Education: retired Gender identity (if verbalized by the patient): Male Spiritual care concerns: No Agree to blood products: Yes Exam Narrative: GENERAL: Well-appearing, well-nourished, and in no acute distress. HEAD: Normocephalic, atraumatic. EYES: EOMI. CHEST: Clear to auscultation. No respiratory distress. No wheezes rales or rhonchi HEART: Regular rate and rhythm. No murmur heard. Normal peripheral pulses. ABDOMEN: Soft, nondistended, normal active bowel sounds. Mild tenderness to palpation in the lower abdomen, without guarding EXTREMITIES: Normal range of motion. No edema. SKIN: Warm, dry, no rash. NEURO: No focal deficits. Alert and oriented x3. PSYCH: Normal mood and affect Course Course Emergency Course: patient updated on his workup and agrees with plan of care Vital Signs Vital signs: Vital Signs Temperature 97.8 F 05/12/24 12:55 Pulse Rate 103 H 05/12/24 12:55 Respiratory Rate 15 05/12/24 12:55 Blood Pressure 150/76 H 05/12/24 12:55 Pulse Oximetry 96 05/12/24 12:55 Oxygen Delivery Room Air 05/12/24 12:55 Temperature 97.8 F 05/12/24 12:55 Pulse Rate 88 05/12/24 18:42 Respiratory Rat
[2024-05-12 15:04] LABS: Alanine Aminotransferase 26 U/L (6-50); Albumin Level 4.4 g/dL (3.5-5.1); Alkaline Phosphatase 73 U/L (38-126); Anion Gap 13 mmol/L (4-12); Aspartate Amino Transferase 37 U/L (17-59); Bilirubin,Total 0.8 mg/dL (0.2-1.3); Blood Urea Nitrogen 33 mg/dL (9-20); Calcium 11.1 mg/dL (8.4-10.2); Carbon Dioxide 23 mmol/L (22-30); Chloride 99 mmol/L (98-107); Estimated CRCL calculation 47 ml/min; Estimated Glomerular Filt Rate > 60; Glucose 124 mg/dL (65-110); Lipase 125 U/L (23-300); Potassium 3.9 mmol/L (3.4-5.0); Sodium 135 mmol/L (137-145)
[2024-05-12 15:14] LABS: Add Urine Microscopic? YES; Appearance Urine Clear (Clear); Bacteria Urine None Seen /hpf; Bilirubin Urine Negative (Negative); Blood Urine Negative (Negative); Calcium Oxalate Crystals Urine Present /hpf; Color Urine Dark Yellow (Yellow); Glucose Urine UA Negative (Negative); Ketones Urine 3+ mg/dL (Negative); Leukocyte Esterase Ur Negative LEU/UL (Negative); Need Manual Microscopic Reviewed; Nitrate Urine Negative (Negative); Non Pathogenic Casts 0-2; Protein Urine 1+ mg/dL (Negative); Squamous Epithelial Cell Urine None Seen /hpf (Few); WBC Urine 0-5 /hpf (0-3)
[2024-05-12] MEDS: SODIUM CHLORIDE 0.9% IV 500 ML 250 ML IV CONT (17:15)
[2024-05-12 17:16] VITALS: BP 163/77; PULSE 92; RESP 18; O2SAT 97
[2024-05-12 18:42] VITALS: BP 161/77; PULSE 88; RESP 22; O2SAT 97
== END 2024-05-12 18:43 | disposition home or self-care (01) ==
PROVIDERS: Emergency Medicine; Emergency Provider Physician Assistant; PCP Emergency Medicine
DX: N13.2 Hydronephrosis with renal and ureteral calculous obstruction (principal); I25.10 Atherosclerotic heart disease of native coronary artery without angina pectoris; I10 Essential (primary) hypertension; E78.5 Hyperlipidemia, unspecified; E55.9 Vitamin D deficiency, unspecified; Z85.828 Personal history of other malignant neoplasm of skin; Z86.0101 Personal history of adenomatous and serrated colon polyps; Z87.891 Personal history of nicotine dependence; K44.9 Diaphragmatic hernia without obstruction or gangrene; K40.20 Bilateral inguinal hernia, without obstruction or gangrene, not specified as recurrent; R93.3 Abnormal findings on diagnostic imaging of other parts of digestive tract; R93.2 Abnormal findings on diagnostic imaging of liver and biliary tract
CPT/HCPCS: 36415; 74177; 80053; 81001; 83690; 85025; 96360; 99284; J7040; Q9967

== ENCOUNTER 2024-06-27 06:54 | Outpatient (CLI) | payer MEDICARE, SELFPAY ==
[2024-06-27 08:20] LABS: Alanine Aminotransferase 26 U/L (6-50); Alkaline Phosphatase 61 U/L (38-126); Anion Gap 0 mmol/L (4-12); Aspartate Amino Transferase 32 U/L (17-59); Bilirubin,Total 0.7 mg/dL (0.2-1.3); Blood Urea Nitrogen 24 mg/dL (9-20); Calcium 10.3 mg/dL (8.4-10.2); Carbon Dioxide 31 mmol/L (22-30); Chloride 104 mmol/L (98-107); Cholesterol 141 mg/dL (0-200); Estimated Glomerular Filt Rate > 60; Glucose 98 mg/dL (65-110); HDL Direct 56 mg/dL; Potassium 4.6 mmol/L (3.4-5.0); Sodium 135 mmol/L (137-145); Triglycerides 75 mg/dL (<150)
[2024-06-27 08:31] LABS: LDL Cholesterol Direct 56 mg/dL
[2024-06-27 10:04] LABS: Vitamin D 25 Hydroxy 54.3 ng/mL
== END 2024-06-27 06:55 | disposition home or self-care (01) ==
LOC: ANHLAB 06:55
PROVIDERS: PCP Emergency Medicine; Visit Provider Emergency Medicine
DX: E78.5 Hyperlipidemia, unspecified (principal); E55.9 Vitamin D deficiency, unspecified
CPT/HCPCS: 36415; 80053; 80061; 82306

== ENCOUNTER 2024-10-01 07:03 | Outpatient (CLI) | payer MEDICARE, SELFPAY ==
--- OUTSIDE RECORDS SUMMARY | 2024-10-01 07:06 | XMS_ITS ---
Author Organization [facility] Care Team Providers Care Wall Covering Contractor Name Role Phone Melvin Desai Unavailable Unavailable Allergies and adverse reactions No Known Allergies Care Team Name Role Address Phone Organization Dates Melvin Desai PCP [address] [place], [address], [place] (Office): : [facility] 02/08/2020 - 02/17/2020 Immunizations Immunization Status Vaccine Details Vaccine Code CodeSystem Rinku e Notes Influenza normal Influenza, high-dose, split virus, quadrivalent, injectable, preservative free 197 CVX created date: 02/10/2020 consent date: 02/10/2020 Prevnar 23 normal created d ate: 02/10/2020 consent date: 02/10/2020 Mental Status Section Date Assessment Total Score Description 02/17/2020 BIMS 15 cognitively int act CAM 0 No delirium ind icated PHQ-9 00 02/14/2020 BIMS 14 cognitively int act CAM 0 No delirium ind icated PHQ-9 03 minimal depress ion Problems Problem # Description Date of onset Resolved Date Code CodeSystem Concern Status 1 ANEMIA, UNSPECIFIED 02/07/[address] active 2 ANGINA PECTORIS, UNSPECIFIED 02/07/[address] active 3 ATHEROSCLEROTIC HEART DISEASE OF [place] CORONARY ARTERY WITHOUT ANGINA PECTORIS 02/07/[address] active 4 CARDIOMEGALY 02/07/[address] active 5 CONSTIPATION, UNSPECIFIED 02/07/[address] active 6 ENCOUNTER FOR SURGICAL AFTERCARE FOLLOWING SURGERY ON THE CIRCULATORY SYSTEM 02/07/[address] active 7 ESSENTIAL (PRIMARY) HYPERTENSION 02/07/[address] active 8 GASTRO-ESOPHAGEAL REFLUX DISEASE WITHOUT ESOPHAGITIS 02/07/[address] active 9 HYPERLIPIDEMIA, UNSPECIFIED 02/07/[address] active 10 OCCLUSION AND STENOSIS OF RIGHT CAROTID ARTERY 02/07/[address] active 11 OTHER SECONDARY THROMBOCYTOPENIA 02/07/[address] active 12 PRESENCE OF AORTOCORONARY BYPASS GRAFT 02/07/[address] active 13 SHORTNESS OF BREATH 02/07/[address] active 14 VITAMIN D DEFICIENCY, UNSPECIFIED 02/07/[address] active Reason for Referral No Reasons for Referral Entered Social History Social History Observation Description Start Date End Date Code Code System Current Smoking Status Tobacco smoking consumption unknown 519039845 SNOMED CT Sex Assigned At Male 1940 11179-4 [facility] Vital Signs Code Code System Vitals Name Values and Units Timing Information 53470-1 [facility] O2 % BldC Oximetry Value=96.0 Units= % 02/17/2020 16231-8 LOINC Weight Bhbsm=786.5 Units=Lbs 95251-7 INC Pain Level Value=0.0 02/17/2020 9279-1 INC Respiratory Rate Value=19.0 Units=/m in 02/17/2020 8462-4 LOINC Blood Pressure-Diastolic Value=84 Un its=mmHg 02/17/2020 8480-6 LOINC Blood Pressure-Systolic Zomis=812 Un its=mmHg 02/17/2020 8310-5 INC Body Temperature Value=97.1 Units= F 02/17/2020 8867-4 LOINC Heart rate Value=63.0 Units=/min 8302-2 LOINC Height Value=67.0 Units=Inches 02/08/2020
--- OUTSIDE RECORDS SUMMARY | 2024-10-01 07:06 | XMS_ITS | Referral Summary ---
Author Organization [facility] Address [address] [place] [address] Care Team Providers Care Ticket Scheduler Name Role Phone Doug Walker MD Primary Care Provide r Doug Walker MD Unavailable [phone] Stone Palacio MD Unavailable [phone] Tristen Almodovar MD Unavailable [phone] Cayetano Miller MD Unavailable [phone] Allergies No known active allergies Medications aspirin 81 mg enteric coated tablet Take 1 tablet (81 mg total) by mouth 2 (two) times a day Active cholecalciferol (VITAMIN D-3) 1,000 unit Take 2 tablet/caps ule (2,000 Units total) by mouth daily Active multivitamin capsule Take 1 capsule by mouth daily Active lisinopriL (PRINIVIL,ZESTRI L) 5 mg tabletIndication s:Essential hypertension Take 1 tablet (5 mg total) by mouth daily 90 tablet 3 04/06/20 21 Active metoprolol XL (TOPROL-XL) 50 mg extended release tablet Take 1 tablet (50 mg total) by mouth 2 (two) times a day 08/08/19 22 Active vit C/E/Zn/coppr/lut ein/zeaxan (PRESERVISION AREDS-2 ORAL) Take by mouth Active atorvastatin (LIPITOR) 40 mg tablet TAKE 1 TABLET BY MOUTH DAILY 90 tablet 3 09/09/19 25 Active atorvastatin (LIPITOR) 40 mg tablet TAKE 1 TABLET BY MOUTH DAILY 90 tablet 1 10/03/12 24 025 Discontinued Active Problems Problem Noted Date Diagnosed Date Mixed hyperlipidemia 09/22/2021 Assessment & Plan (10/26/2022 10:44 AM CDT): Hyperlipidemia chronic and controlled. Continue Lipitor. Chronic heart failure with p reserved ejection fraction ([facility]/HCC) 07/09/2020 HTN (hypertension), benign 03/02/2020 Assessment & Plan (10/26/2022 10:44 AM CDT): Hypertension chronic and controlled. Continue current medical management. Postoperative atrial fibrillation 03/02/2020 HOLT (dyspnea on exertion) 03/02/2020 Carotid stenosis, right 03/02/2020 Assessment & Plan (10/26/2022 10:44 AM CDT): Known asymptomatic carotid stenosis. Has undergone 2 [address] angiogram within the last 3 years result of which vary. Will follow-up with carotid duplex for additional evaluation. Return to the office once the studies performed in 2 weeks. Anemia, unspecified 02/07/2020 Angina pectoris, unspecified 02/07/2020 Constipation, unspecified 02/07/2020 Gastro-esophageal reflux disease without esophag itis 02/07/2020 Other secondary thrombocytopenia 02/07/2020 Presence of aortocoronary bypass graft 0 Vitamin D deficiency, unspecified 02/07/2020 Coronary artery disease invo lving [place] heart without angina pectoris 01/27/2020 Overview (01/28/2020): Added automatically from request for surgery [id number] S/P CABG (coronary artery bypass graft) Resolved Problems Problem Noted Date Diagnosed Date Resolved Date Dyslipidemia 03/02/2020 09/22/2021 Occlusion and stenosis of ri ght carotid artery 02/07/2020 11/10/2022 Immunizations Immunization Administration Dates Next Due Influenza, Trivalent, High D ose, Split, Preservative Free, Intramuscular 04/16/2017 Pneumococcal Conjugate PCV 13 08/04/2015 Social History Tobacco Use Types Packs/Day Years Used Date Smoking Tobacco: Former Cigarettes 1.5 3 0 07/29/1960 - 07/29/1963 Smokeless Tobacco: Never Tobacco Cessation:Counseling Given: Yes Alcohol Use Standard Drinks/Week Comments Not Currently 0 (1 standard drink = 0.6 oz pur e alcohol) Overall Financial Resource Strain (CARDIA) Answe r Date Recorded How hard is it for you to pa y for the very basics like food, housing, medical care, and heating? Not very hard 01/28/2020 PRAPARE - Transportation Answer Date Re corded In the past 12 months, has l ack of transportation kept you from medical appointments or from getting medications? No 01/2020 In the past 12 months, has l ack of transportation kept you from meetings, work, or from getting things needed for daily living? No 01/28/2020 Sex and Gender Information Value Date Recorded Sex Assigned at Not on file Legal Sex Male 1:58 AM GLOBAL TRANSPORTATION MANAGER Gender Identity Not on file Sexual Orientation Not on file Last Filed Vital Signs Vital Sign Reading Time Taken Comments Blood Pressure 152/70 06/11/2024 9:25 AM GLOBAL TRANSPORTATION MANAGER Pulse 68 06/11/2024 9:25 AM GLOBAL TRANSPORTATION MANAGER Temperature 36.8 C (98.2 F) 04/21/2020 11:14 AM CDT Respiratory Rate 14 04/21/2020 11:14 AM CDT Oxygen Saturation 93% 06/11/2024 9:25 AM GLOBAL TRANSPORTATION MANAGER Inhaled Oxygen Concentration - - Weight 77.6 kg (171 lb) 06/11/2024 9:25 AM GLOBAL TRANSPORTATION MANAGER Height 170.2 cm (5' 7 ) 06/11/2024 9:25 AM GLOBAL TRANSPORTATION MANAGER Body Mass Index 26.78 06/11/2024 9:25 AM GLOBAL TRANSPORTATION MANAGER Plan of Treatment Not on file [place] [address] MEDICARE SOLUTIONS [place] [id number] MEDICARE SOLUTIONS [place] [id number] MEDICARE SOLUTIONS [place] [id number] Advance Directives For more information, please contact: [phone] * Full Code (Latest Code Status on File) Date Activated Date Inactivated Comments 01/27/2020 9:41 PM 02/07/2020 11:27 PM Care Teams Ticket Scheduler Relationship Specialty Start Date End Date Doug Walker MD [address] [place] [address] PCP - General Emergency Medicine 01/27/20 Doug Walker MD [address] [place] [address] 01/27/20 Stone Palacio MD [address] [place] [address] Fellow Vascular Surgery 02/07/20 Tristen Almodovar MD [address] [place] [address] Consulting Physician Cardiology 02/07/20 [place] [address] [facility] [address] [place] [address] Consulting Physician Pulmonary Disease 02/07/20
--- OUTSIDE RECORDS SUMMARY | 2024-10-01 07:06 | XMS_ITS | Clinical Summary ---
Author Organization [facility] Address [address] [place] [address] Care Team Providers Care Lard Maker Name Role Phone Doug Walker MD Primary Care Provide r Doug Walker MD Unavailable [phone] Stone Palacio MD Unavailable [phone] Tristen Almodovar MD Unavailable [phone] Cayetano Miller MD Unavailable [phone] Allergies No known active allergies Medications aspirin [...] heart failure with p reserved ejection fraction ([facility]/HCC) 07/09/2020 HTN (hypertension), benign 03/02/2020 Assessment [...] unspecified 02/07/2020 Coronary artery disease invo lving [place] heart without angina pectoris 01/27/2020 Overview (01/28/2020): Added automatically from request for surgery [id number] S/P CABG (coronary artery bypass graft) Resolved Problems Problem Noted Date Diagnosed Date Resolved Date Dyslipidemia 03/02/2020 09/22/2021 Occlusion and stenosis of ri ght carotid artery 02/07/2020 11/10/2022 Immunizations Immunization Administration Dates Next Due Influenza, Trivalent, High D ose, Split, Preservative Free, Intramuscular 04/16/2017 Pneumococcal Conjugate PCV 13 08/04/2015 Surgical History Surgery Date Site/Laterality Comments CORONARY ARTERY BYPASS GRAFT TONSILLECTOMY APPENDECTOMY CARDIAC STENT PLACEMENT SKIN CANCER EXCISION Medical History Medical History Date Comments Hypertension Hypertension Hx Other Medical dyslipidemia Cancer (HCC) Skin Kidney stone Family History Medical History Relation Name Comments Heart failure Father Alzheimer's disease Mother Parkinsonism Mother Relation Name Status Comments Father Mother Social History Tobacco Use Types Packs/Day Years [...] on file Legal Sex Male 1:58 AM ORNAMENTAL IRON WORKER APPRENTICE Gender Identity Not on file Sexual Orientation Not on file Obstetrics History Last Filed Vital Signs Vital Sign Reading Time Taken Comments Blood Pressure 152/70 06/11/2024 9:25 AM ORNAMENTAL IRON WORKER APPRENTICE Pulse 68 06/11/2024 9:25 AM ORNAMENTAL IRON WORKER APPRENTICE Temperature 36.8 C (98.2 F) 04/21/2020 11:14 AM CDT Respiratory Rate 14 04/21/2020 11:14 AM CDT Oxygen Saturation 93% 06/11/2024 9:25 AM ORNAMENTAL IRON WORKER APPRENTICE Inhaled Oxygen Concentration - - Weight 77.6 kg (171 lb) 06/11/2024 9:25 AM ORNAMENTAL IRON WORKER APPRENTICE Height 170.2 cm (5' 7 ) 06/11/2024 9:25 AM ORNAMENTAL IRON WORKER APPRENTICE Body Mass Index 26.78 06/11/2024 9:25 AM ORNAMENTAL IRON WORKER APPRENTICE Plan of Treatment Health Maintenance Due Date Last Done Comments Depression Screening 1940 DTaP/Tdap/Td Vaccine (1 - Tdap) 1953 Hepatitis B Screening 01/07/1960 Zoster Vaccine (1 of 2) 01/07/1992 Well Visit 65+ 2007 Pneumococcal vaccine 65+ (2 of 2 - PPSV23) 09/29/2015 08/04/2015 Fall Risk Assessment 02/06/2021 02/07/2020 Influenza Vaccine (#1) 2024 04/16/2017 Insurance MEDICARE SOLUTIONS MEDICARE SOLUTIONS MEDICARE SOLUTIONS [place] [id number] MEDICARE SOLUTIONS Advance Directives For more information, please contact: [phone] * Full Code (Latest Code Status on File) Date Activated Date Inactivated Comments 01/27/2020 9:41 PM 02/07/2020 11:27 PM Care Teams Lard Maker Relationship Specialty Start Date End Date Doug Walker MD [address] [facility] [place] [address] PCP - General Emergency Medicine 01/27/20 Doug Walker MD [address] [place] [address] 01/27/20 Stone Palacio MD [address] [place] [address] Fellow Vascular Surgery 02/07/20 Tristen Almodovar MD [address] [place] [address] Consulting Physician Cardiology 02/07/20 [place] [address] [facility] [address] [place] [address] Consulting Physician Pulmonary Disease 02/07/20
--- OUTSIDE RECORDS SUMMARY | 2024-10-01 07:06 | XMS_ITS | Clinical Summary ---
Author Organization [facility] Address Formerly [facility], [id number] [place] [address] Care Team Providers Care Escrow Processor Name Role Phone Melvin Desai MD Primary Care Provider Active Problems Problem Noted Date Diagnosed Date Coronary artery disease invo lving coronary bypass graft of [place] heart without angina pectoris 02/11/2020 Essential hypertension 02/11/2020 Mixed hyperlipidemia 02/11/2020 Social History Tobacco Use Types Packs/Day Years Used Date Smoking Tobacco: Never Assessed Sex and Gender Information Value Date Recorded Sex Assigned at Not on file Legal Sex Male 4:24 PM CDT Gender Identity Not on file Sexual Orientation Not on file Last Filed Vital Signs Vital Sign Reading Time Taken Comments Blood Pressure 128/76 02/11/2020 9:06 AM CDT Pulse 70 02/11/2020 9:06 AM CDT Temperature 36.2 C (97.1 F) 02/11/2020 9:06 AM CDT Respiratory Rate 18 02/11/2020 9:06 AM CDT Oxygen Saturation 98% 02/11/2020 9:06 AM CDT Inhaled Oxygen Concentration - - Weight 83 kg (183 lb) 02/11/2020 9:06 AM CDT Height - - Body Mass Index - - Plan of Treatment Health Maintenance Due Date Last Done Comments ASCVD LDL 1940 ASCVD Statin 1940 DTaP, Tdap and Td Vaccines ( 1 - Tdap) 1961 Zoster Vaccines (1 of 2) 01/07/1992 Pneumococcal Vaccine: 65+ Ye ars (2 of 2 - PPSV23 or PCV20) 09/29/2015 08/04/2015 RSV Immunization or 60+ Years (1 - 1-dose 75+ series) 2017 COVID-19 Vaccine ( - 2023-2 5 season) 2024 Influenza Adult (#1) 2024 04/16/2017 Meningococcal B Vaccine Aged Out No l onger eligible based on patient's age to complete this topic Meningococcal Vaccine Aged Out No teresa gaudencio eligible based on patient's age to complete this topic RSV Immunizations Under 20 Months Aged Out No longer eligible based on patient's age to complete this topic Insurance [facility] Care Teams Escrow Processor Relationship Specialty [place] [address] [place] [address] PCP - General FAMILY PRACTICE 02/11/20
--- OUTSIDE RECORDS SUMMARY | 2024-10-01 07:07 | XMS_ITS | Clinical Summary ---
Author Organization [facility] Address [address] [facility] [address] [place] [address] Phone Care Team Providers Care Yeast Culture Operator Name Role Phone Doug Walker MD Primary Care Provider [phone] Social History Tobacco Use Types Packs/Day Years Used Date Smoking Tobacco: Never Assessed Sex and Gender Information Value Date Recorded Sex Assigned at Not on file Legal Sex Male 8:02 PM CDT Gender Identity Not on file Sexual Orientation Not on file Plan of Treatment Health Maintenance Due Date Last Done Comments Hepatitis C Virus (HCV) Screening 1940 TdaP Immunization 1940 Pneumococcal Immunization (5 0+ years) (1 of 1 - PCV) 01/07/1992 Zoster Immunization (1 of 2) 01/07/1992 Respiratory Syncytial Virus (RSV) Immunization (Adult) (1 - 1-dose 75+ series) 2017 Influenza Immunization (#1) 2024 SARS-COV-2 Immunization ( season) 2024 Hepatitis B Immunization Aged Out No longer eligible based on patient's age to complete this topic Meningococcal Immunization (ACWY) Aged Out No longer eligible based on patient's age to complete this topic Rotavirus Immunization Aged Out No lo nger eligible based on patient's age to complete this topic Care Teams Yeast Culture Operator Relationship Specialty Start Date End Date Doug Walker MD [address] [place] [address] PCP - General Internal Medicine 03/28/19
[2024-10-01 07:40] LABS: Alanine Aminotransferase 36 U/L (6-50); Albumin Level 4.4 g/dL (3.5-5.1); Alkaline Phosphatase 72 U/L (38-126); Anion Gap 7 mmol/L (4-12); Aspartate Amino Transferase 35 U/L (17-59); Bilirubin,Total 0.8 mg/dL (0.2-1.3); Blood Urea Nitrogen 37 mg/dL (9-20); Calcium 10.5 mg/dL (8.4-10.2); Carbon Dioxide 27 mmol/L (22-30); Chloride 107 mmol/L (98-107); Cholesterol 128 mg/dL (0-200); Estimated Glomerular Filt Rate > 60; Glucose 99 mg/dL (65-110); HDL Direct 53 mg/dL; Potassium 4.3 mmol/L (3.4-5.0); Sodium 141 mmol/L (137-145); Triglycerides 64 mg/dL (<150)
[2024-10-01 07:51] LABS: LDL Cholesterol Direct 49 mg/dL
[2024-10-01 09:56] LABS: Vitamin D 25 Hydroxy 58.5 ng/mL
== END 2024-10-01 07:04 | disposition home or self-care (01) ==
LOC: ANHLAB 07:04
PROVIDERS: PCP Emergency Medicine; Visit Provider Emergency Medicine
DX: E78.5 Hyperlipidemia, unspecified (principal); E55.9 Vitamin D deficiency, unspecified
CPT/HCPCS: 36415; 80053; 80061; 82306

== ENCOUNTER 2024-12-30 06:46 | Outpatient (CLI) | payer MEDICARE, SELFPAY ==
--- OUTSIDE RECORDS SUMMARY | 2024-12-30 06:48 | XMS_ITS | Clinical Summary ---
Author Organization [facility] Address [address] [place] [address] Care Team Providers Care Assistant Health Educator Name Role Phone Doug Walker MD Primary Care Provide r Doug Walker MD Unavailable [phone] Stone Palacio MD Unavailable [phone] Tristen Almodovar MD Unavailable [phone] AngelaCayetano yun MD Unavailable [phone] Allergies No known active allergies Medications aspirin 81 mg enteric coated tablet Take 1 tablet (81 mg total) by mouth 2 (two) times a day Active cholecalciferol (VITAMIN D-3) 1,000 unit Take 2 tablet/capsu le (2,000 Units total) by mouth daily Active multivitamin capsule Take 1 capsule by mouth daily Active lisinopriL (PRINIVIL,ZESTRIL ) 5 mg tabletIndications :Essential hypertension Take 1 tablet (5 mg total) by mouth daily 90 tablet 3 1 Active metoprolol XL (TOPROL-XL) 50 mg extended release tablet Take 1 tablet (50 mg total) by mouth 2 (two) times a day 2 Active vit C/E/Zn/coppr/lute in/zeaxan (PRESERVISION AREDS-2 ORAL) Take by mouth Active atorvastatin (LIPITOR) 40 mg tablet TAKE 1 TABLET BY MOUTH DAILY 90 tablet 3 5 Active Active Problems Problem Noted Date Diagnosed Date Mixed hyperlipidemia 09/22/2021 Assessment & Plan (10/26/2022 10:44 AM CDT): Hyperlipidemia chronic and controlled. Continue Lipitor. Chronic heart failure with p reserved ejection fraction (CMS/HCC) 07/09/2020 HTN (hypertension), benign 03/02/2020 Assessment & Plan (10/26/2022 10:44 AM CDT): Hypertension chronic and controlled. Continue current medical management. Postoperative atrial fibrillation 03/02/2020 HOLT (dyspnea on exertion) 03/02/2020 Bilateral carotid artery stenosis 03/02/2020 Assessment & Plan (11/28/2024 12:18 PM CDT): Patient remains asymptomatic. Continue aspirin statin therapy and follow-up in 1 year for routine surveillance with carotid duplex Assessment & Plan (10/26/2022 10:44 AM CDT): [...] unspecified 02/07/2020 Coronary artery disease invo lving [place]oug[place] heart without angina pectoris 01/27/2020 Overview (01/28/2020): Added automatically from request for surgery [id number] S/P CABG (coronary artery bypass graft) Resolved Problems Problem Noted Date Diagnosed Date Resolved Date Dyslipidemia 03/02/2020 09/22/2021 Occlusion and stenosis of ri ght carotid artery 02/07/2020 11/10/2022 Encounters Date Type Department Care Team Description 11/27/2024 10:15 AM CDT Office Visit [facility] Vascular and Vein Surgery [address] [facility] [address] [place] [address] Cassandra Olivia NP Bilateral carotid artery stenosis (Primary Dx); Mixed hyperlipidemia; HTN (hypertension), benign 11/27/2024 9:14 AM CDT - 11/27/2024 11:59 PM CDT Hospital Encounter [facility] Medical Office Building 2 Vascular [address] [address] Bilateral carotid artery stenosis Discharge Disposition: Discharge to home or self care from Last 3 Months Immunizations Immunization Administration Dates Next Due Influenza, [...] on file 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 Gender Identity Not on file Sexual Orientation Not on file Obstetrics History Last Filed Vital Signs Vital Sign Reading Time Taken Comments Blood Pressure 183/81 11/27/2024 9:45 AM CDT Pulse 58 11/27/2024 9:45 AM CDT Temperature 36.8 C (98.2 F) 04/21/2020 11:14 AM CDT Respiratory Rate 16 11/27/2024 9:45 AM CDT Oxygen Saturation 94% 11/27/2024 9:45 AM CDT Inhaled Oxygen Concentration - - Weight 75.9 kg (167 lb 6.4 oz) 11/27/2024 9:45 A M CDT Height 170.2 cm (5' 7) 11/27/2024 9:45 AM CDT Body Mass Index 26.22 11/27/2024 9:45 AM CDT Plan of Treatment Health Maintenance Due Date Last Done Comments Depression Screening 1940 DTaP/Tdap/Td Vaccine (1 - Tdap) 1953 Hepatitis B Screening 01/07/1960 Zoster Vaccine (1 of 2) 01/07/1992 Well Visit 65+ 2007 Pneumococcal vaccine 65+ (2 of 2 - PPSV23) 09/29/2015 08/04/2015 Fall Risk Assessment 02/06/2021 02/07/2020 Influenza Vaccine (Season Ended) 2025 04/16/20 17 Procedures Procedure Name Priority Date/Time Associated Diagnosis Comments US CAROTIDS DUPLEX BILATERAL Schedule Routine, Read Routine (OP Routine) 11/27/2024 9:50 AM CDT Bilateral carotid artery stenosis from Last 3 Months Results * US Carotids Duplex Bilateral (11/27/2024 9:50 AM CDT) Anatomical Region Laterality Modality Vascular Bilateral Ultrasound 11/27/2024 9:34 AM CDT Narrative 11/28/2024 12:34 PM CDT Carotid Duplex Ultrasound Report Patient Name: DIALLO MICHELE : 1940 (84y 10m) Study Date: 11/27/2024 9:34:34 AM Gender: M Route Sales Delivery Drivers Supervisor: Trina Madison Provider: DILMA TERESA Quality: Adequate Order Provider: DILMA TERESA PROCEDURES: Carotid Report: Carotid duplex examination of the extracranial arteries was performed using 2D, color and spectral Doppler. Blood Pressure: Right: 140 mmHg. Left: 132 mmHg. INDICATIONS: I65.23 Occlusion and stenosis of bilateral carotid arteries. HISTORY: h/o HTN, HLD, QUIT SMOKING 1964. COMPARISONS: No change compared to prior study. The previous exam was completed on 11/13/23. MEASUREMENTS: Right Value Left Value RT Prox CCA PSV 38 cm/sec LT Prox CCA PSV 95 cm/sec RT Prox CCA EDV 10 cm/sec LT Prox CCA EDV 19 cm/sec RT Distal CCA PSV 41 cm/sec LT Distal CCA PSV 66 cm/sec RT Distal CCA EDV 13 cm/sec LT Distal CCA EDV 17 cm/sec RT Prox ICA PSV 164 cm/sec LT Prox ICA PSV 161 cm/sec RT Prox ICA EDV 32 cm/sec LT Prox ICA EDV 38 cm/sec RT Mid ICA PSV 184 cm/sec LT Mid ICA PSV 124 cm/sec RT Mid ICA EDV 20 cm/sec LT Mid ICA EDV 27 cm/sec RT Distal ICA PSV 139 cm/sec LT Distal ICA PSV 118 cm/sec RT Distal ICA EDV 32 cm/sec LT Distal ICA EDV 38 cm/sec RT ECA Prx PSV 104 cm/sec LT ECA Prx PSV 82 cm/sec RT ECA Prx EDV 11 cm/sec LT ECA Prx EDV 13 cm/sec RT ICA/CCA 4.00 ratio LT ICA/CCA 2.40 ratio Rt Vert PSV 111 cm/sec Lt Vert PSV 54 cm/sec FINDINGS: Rt Common Carotid Artery: The plaque in the right CCA appears to be heterogeneous and smooth. Rt Internal Carotid Artery: The plaque in the right internal carotid artery appears to be heterogeneous, calcified and irregular. Significant atherosclerotic changes of the right internal carotid artery with elevated peak systolic velocity and end diastolic velocity, as above. 50-69% stenosis. Rt External Carotid Artery: Patent right external carotid artery with evidence of atherosclerotic disease present. Rt Vertebral Artery: The right vertebral artery is patent with antegrade flow. Lt Common Carotid Artery: The plaque in the left CCA appears to be heterogeneous and smooth. Lt Internal Carotid Artery: The plaque in the left internal carotid artery appears to be heterogeneous and irregular. Significant atherosclerotic changes of the left internal carotid artery with elevated peak systolic velocity and end diastolic velocity, as above. 50-69% stenosis. Lt External Carotid Artery: The left external carotid artery is patent without evidence of atherosclerotic plaque. Lt Vertebral Artery: The left vertebral artery is patent with antegrade flow. CONCLUSIONS: 1. The right internal carotid artery disease is consistent with moderate 50-69% stenosis. 2. The left internal carotid artery disease is consistent with moderate 50-69% stenosis. ATTESTATION: I have reviewed and interpreted the pertinent images and measurements of this study. I attest to the conclusions in the final report that is provided above. Electronically Signed By: Chacho Sanchez MD 11/28/2024 12:01:43 PM CDT Procedure Note Chacho Sanchez MD - 11/28/2024 Carotid Duplex Ultrasound Report Patient Name: DIALLO MICHELE : 1940 (84y 10m) Study Date: 11/27/2024 9:34:34 AM Gender: M Route Sales Delivery Drivers Supervisor: Trina Madison Provider: DILMA TERESA Quality: Adequate Order Provider: DILMA TERESA PROCEDURES: Carotid Report: Carotid duplex examination of the extracranial arterieswas performed using 2D, color and spectral Doppler. Blood Pressure: Right: 140 mmHg. Left: 132 mmHg. INDICATIONS: I65.23 Occlusion and stenosis of bilateral carotid arteries. HISTORY: h/o HTN, HLD, QUIT SMOKING 1963. COMPARISONS: No change compared to prior study. The previous exam was completed on11/13/23. MEASUREMENTS: Right Value Left Value RT Prox CCA PSV 38 cm/sec LT Prox CCA PSV 95 cm/sec RT Prox CCA EDV 10 cm/sec LT Prox CCA EDV 19 cm/sec RT Distal CCA PSV 41 cm/sec LT Distal CCA PSV 66 cm/sec RT Distal CCA EDV 13 cm/sec LT Distal CCA EDV 17 cm/sec RT Prox ICA PSV 164 cm/sec LT Prox ICA PSV 161 cm/sec RT Prox ICA EDV 32 cm/sec LT Prox ICA EDV 38 cm/sec RT Mid ICA PSV 184 cm/sec LT Mid ICA PSV 124 cm/sec RT Mid ICA EDV 20 cm/sec LT Mid ICA EDV 27 cm/sec RT Distal ICA PSV 139 cm/sec LT Distal ICA PSV 118 cm/sec RT Distal ICA EDV 32 cm/sec LT Distal ICA EDV 38 cm/sec RT ECA Prx PSV 104 cm/sec LT ECA Prx PSV 82 cm/sec RT ECA Prx EDV 11 cm/sec LT ECA Prx EDV 13 cm/sec RT ICA/CCA 4.00 ratio LT ICA/CCA 2.40 ratio Rt Vert PSV 111 cm/sec Lt Vert PSV 54 cm/sec FINDINGS: Rt Common Carotid Artery: The plaque in the right CCA appears to beheterogeneous and smooth. Rt Internal Carotid Artery: The plaque in the right internal carotidartery appears to be heterogeneous, calcified and irregular. Significant atheroscleroticchanges of the right internal carotid artery with elevated peak systolic velocity and enddiastolic velocity, as above. 50-69% stenosis. Rt External Carotid Artery: Patent right external carotid artery withevidence of atherosclerotic disease present. Rt Vertebral Artery: The right vertebral artery is patent with antegradeflow. Lt Common Carotid Artery: The plaque in the left CCA appears to beheterogeneous and smooth. Lt Internal Carotid Artery: The plaque in the left internal carotid arteryappears to be heterogeneous and irregular. Significant atherosclerotic changes of theleft internal carotid artery with elevated peak systolic velocity and end diastolicvelocity, as above. 50-69% stenosis. Lt External Carotid Artery: The left external carotid artery is patentwithout evidence of atherosclerotic plaque. Lt Vertebral Artery: The left vertebral artery is patent with antegradeflow. CONCLUSIONS: 1. The right internal carotid artery disease is consistent with -44% stenosis. 2. The left internal carotid artery disease is consistent with [id number]% stenosis. ATTESTATION: I have reviewed and interpreted the pertinent images and measurements ofthis study. I attest to the conclusions in the final report that is provided above. Electronically Signed By: Chacho Sanchez MD 11/28/2024 12:01:43 PM CDT us Dilma [facility] PROCEDURES Final Res ult from Last 3 Months Insurance [facility] MEDICARE ADVANTAGE [facility] MEDICARE ADVANTAGE UHC MEDICARE ADVANTAGE UHC MEDICARE ADVANTAGE Advance Directives For more information, please contact: [phone] * Full Code (Latest Code Status on File) Date Activated Date Inactivated Comments 01/27/2020 9:41 PM 02/07/2020 11:27 PM Care Teams Assistant Health Educator Relationship Specialty Start Date End Date Doug aWlker MD [address] [place] [address] PCP - General Emergency Medicine 01/27/20 Doug Walker MD [address] [place] [address] 01/27/20 Stone Palacio MD [address] [facility] [place] [address] Fellow Vascular Surgery 02/07/20 Tristen Almodovar MD [address] [place] [address] Consulting Physician Cardiology 02/07/20 [place] [address] [facility] [address] [place] [address] Consulting Physician Pulmonary Disease 02/07/20
--- OUTSIDE RECORDS SUMMARY | 2024-12-30 06:48 | XMS_ITS | Clinical Summary ---
Author Organization [facility] [address] [facility] [address] [place] [address] Phone Care Team Providers Care Crew Clerk Name Role Phone Doug Walker MD Primary Care Provider [phone] Social History Tobacco Use Types Packs/Day Years [...] age to complete this topic Care Teams Crew Clerk Relationship Specialty Start Date End Date Doug Walker MD [address] [place] [address] PCP - General Internal Medicine 03/28/19
--- OUTSIDE RECORDS SUMMARY | 2024-12-30 06:48 | XMS_ITS | Referral Summary ---
Author Organization [facility] Address [address] [place] [address] Care Team Providers Care Etch Operator Semiconductor Wafers Name Role Phone Doug Walker MD Primary Care Provide r Doug Walker MD Unavailable [phone] Stone Palacio MD Unavailable [phone] Tristen Almodovar MD Unavailable [phone] Cayetano Miller MD Unavailable [phone] Encounters Date Type Department Care Team Description 11/27/2024 10:15 AM CDT Office Visit [facility] Vascular and Vein Surgery [address] [facility] [address] [place] [address] Cassandra Olivia NP Bilateral carotid artery stenosis (Primary Dx); Mixed hyperlipidemia; HTN (hypertension), benign 11/27/2024 9:14 AM CDT - 11/27/2024 11:59 PM CDT Hospital Encounter [facility] Medical Office Building [address] [place] [address] [address] [place] [address] Bilateral carotid artery stenosis Discharge Disposition: Discharge to home or self care from Last 3 Months Allergies No known active allergies Medications aspirin [...] unspecified 02/07/2020 Coronary artery disease invo lving [place] heart without angina pectoris 01/27/2020 Overview (01/28/2020): Added automatically from request for surgery [id number] S/P CABG (coronary artery bypass graft) Resolved [...] on file 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 2. The left internal carotid artery disease is consistent with [id number]% stenosis. ATTESTATION: I have reviewed and interpreted the pertinent images and measurements ofthis study. I attest to the conclusions in the final report that is provided above. Electronically Signed By: Chacho Sanchez MD 11/28/2024 12:01:43 PM CDT Dilma [facility] PROCEDURES Final Res ult from Last 3 Months Insurance [facility] MEDICARE ADVANTAGE [place] [id number] UHC MEDICARE ADVANTAGE [place] [address] UHC MEDICARE ADVANTAGE [facility] MEDICARE ADVANTAGE Advance Directives For more information, please contact: [phone] * Full Code (Latest Code Status on File) Date Activated Date Inactivated Comments 01/27/2020 9:41 PM 02/07/2020 11:27 PM Care Teams Etch Operator Semiconductor Wafers Relationship Specialty Start Date End Date Doug Walker MD [address] [facility] [place] [address] PCP - General Emergency Medicine 01/27/20 Doug Walker MD [address] [place] [address] 01/27/20 Stone Palacio MD [address] [place] [address] Fellow Vascular Surgery 02/07/20 Tristen Almodovar MD [address] [place] [address] Consulting Physician Cardiology 02/07/20 [place] [address] [facility] [address] [place] [address] Consulting Physician Pulmonary Disease 02/07/20
[2024-12-30 07:51] LABS: Basophils Percent Auto 0.6 % (0.2-1.2); Eosinophils Absolute Auto 0.3 K/mm3 (0-0.3); Eosinophils Percent Auto 4.8 % (0-4.4); Hemoglobin 13.8 g/dL (14.0-18.0); Immature Granulocyte Absolute 0.05 K/mm3 (0.00-0.031); Immature Granulocyte Percent A 0.9 % (0-0.5); Lymphocytes Absolute Auto 1.63 K/mm3 (0.9-3.2); Lymphocytes Percent Auto 30.2 % (18.3-44.2); Mean Corpuscular HGB Conc 32.9 g/dl (32-36); Mean Corpuscular Hemoglobin 34.2 pg (26-34); Mean Platelet Volume 9.8 fl (7.4-10.4); Monocytes Absolute Auto 0.5 K/mm3 (0.1-0.6); Monocytes Percent Auto 9.4 % (2.6-8.5); Neutrophils Absolute Auto 2.9 K/mm3 (1.3-6.7); Neutrophils Percent Auto 54.1 % (45.5-73.1); Platelet Count Result 176 k/mm3 (150-375); Red Blood Count 4.04 M/mm3 (4.6-6.20); Red Cell Distribution Width 12.1 % (11.5-14.5); White Blood Count 5.4 K/mm3 (4.5-10.0)
[2024-12-30 08:04] LABS: Alanine Aminotransferase 28 U/L (6-50); Albumin Level 4.1 g/dL (3.5-5.1); Alkaline Phosphatase 65 U/L (38-126); Anion Gap 5 mmol/L (4-12); Aspartate Amino Transferase 36 U/L (17-59); Bilirubin,Total 0.6 mg/dL (0.2-1.3); Blood Urea Nitrogen 30 mg/dL (9-20); Calcium 10.5 mg/dL (8.4-10.2); Carbon Dioxide 27 mmol/L (22-30); Chloride 103 mmol/L (98-107); Cholesterol 141 mg/dL (0-200); Estimated Glomerular Filt Rate > 60; Glucose 89 mg/dL (65-110); HDL Direct 54 mg/dL; Potassium 4.2 mmol/L (3.4-5.0); Sodium 135 mmol/L (137-145); Total Protein 6.9 g/dL (6.3-8.2); Triglycerides 58 mg/dL (<150)
[2024-12-30 08:28] LABS: Vitamin D 25 Hydroxy 45.5 ng/mL
[2024-12-30 10:10] LABS: LDL Cholesterol Direct 60 mg/dL
== END 2024-12-30 06:47 | disposition home or self-care (01) ==
LOC: ANHLAB 06:47
PROVIDERS: PCP Emergency Medicine; Visit Provider Emergency Medicine
DX: E55.9 Vitamin D deficiency, unspecified (principal); I10 Essential (primary) hypertension; E78.5 Hyperlipidemia, unspecified
CPT/HCPCS: 36415; 80053; 80061; 82306; 85025

== ENCOUNTER 2025-03-31 06:52 | Outpatient (CLI) | payer MEDICARE, SELFPAY ==
--- OUTSIDE RECORDS SUMMARY | 2025-03-31 06:56 | XMS_ITS | Clinical Summary ---
Author Organization [facility] Address [address] [facility] [address] [place] [address] Phone Care Team Providers Care Tree Care Foreman Name Role Phone Doug Walker MD Primary Care Provider [phone] Social History Tobacco Use Types Packs/Day Years [...] (Adult) (1 - 1-dose 75+ series) 2017 SARS-COV-2 Immunization ( - 2023- season) 2024 Influenza Immunization (#1) 2025 Hepatitis B Immunization Aged Out No longer eligible based on patient's age to complete this topic Human Papillomavirus (HPV) Immunization Aged Out No longer eligible b ased on patient's age to complete this topic Meningococcal Immunization (ACWY) Aged Out No longer eligible based on patient's age to complete this topic Rotavirus Immunization Aged Out No lo nger eligible based on patient's age to complete this topic Care Teams Tree Care Foreman Relationship Specialty Start Date End Date Doug Walker MD [address] [place] [address] PCP - General Internal Medicine 03/28/19
--- OUTSIDE RECORDS SUMMARY | 2025-03-31 06:56 | XMS_ITS | Clinical Summary ---
Author Organization [facility] Address [address] [place] [address] Care Team Providers Care Instrument Mechanic Weapons System Name Role Phone Doug Walker MD Primary Care Provide r Doug Walker MD Unavailable [phone] Stone Palacio MD Unavailable [phone] Tristen Almodovar MD Unavailable [phone] Cayetano Miller MD Unavailable [phone] Allergies No known active allergies Medications aspirin [...] heart failure with p reserved ejection fraction ([facility]/HCC) 07/09/2020 HTN (hypertension), benign 03/02/2020 Assessment [...] unspecified 02/07/2020 Coronary artery disease invo lving [place] heart without angina pectoris 01/27/2020 Overview (01/28/2020): Added automatically from request for surgery [id number] S/P CABG (coronary artery bypass graft) Resolved [...] on file 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 Gender Identity Not on file Sexual Orientation [...] Pneumococcal vaccine 65+ (2 of 2 - PPSV23, PCV20, or PCV21) 09/29/2015 08/04/2015 Fall Risk Assessment 02/06/2021 02/07/2020 Influenza Vaccine (#1) 2025 04/16/2017 Insurance [facility] MEDICARE ADVANTAGE [facility] Address: [place] [address] UHC MEDICARE ADVANTAGE [facility] MEDICARE Address: [place] [address] UHC MEDICARE ADVANTAGE [facility] MEDICARE Address: [address] [address] [place] [address] [facility] MEDICARE ADVANTAGE [facility] MEDIC[facility] Address: [address] [address] [place] [address] Advance Directives For more information, please contact: [phone] * Full Code (Latest Code Status on File) Date Activated Date Inactivated Comments 01/27/2020 9:41 PM 02/07/2020 11:27 PM Care Teams Instrument Mechanic Weapons System Relationship Specialty Start Date End Date Doug Walker MD [address] [place] [address] PCP - General Emergency Medicine 01/27/20 Doug Walker MD [address] [place] [address] 01/27/20 Stone Palacio MD [address] [place] [address] Fellow Vascular Surgery 02/07/20 Tristen Almodovar MD [address] [place] [address] Consulting Physician Cardiology 02/07/20 [place] [address] [facility] [address] [place] [address] Consulting Physician Pulmonary Disease 02/07/20
[2025-03-31 08:59] LABS: Alanine Aminotransferase 23 U/L (6-50); Albumin Level 4.1 g/dL (3.5-5.1); Alkaline Phosphatase 72 U/L (38-126); Anion Gap 6 mmol/L (4-12); Aspartate Amino Transferase 33 U/L (17-59); Bilirubin,Total 0.4 mg/dL (0.2-1.3); Blood Urea Nitrogen 26 mg/dL (9-20); Calcium 10.3 mg/dL (8.4-10.2); Carbon Dioxide 27 mmol/L (22-30); Chloride 101 mmol/L (98-107); Cholesterol 140 mg/dL (0-200); Estimated Glomerular Filt Rate > 60; Glucose 98 mg/dL (65-110); HDL Direct 61 mg/dL; Potassium 4.6 mmol/L (3.4-5.0); Sodium 134 mmol/L (137-145); Total Protein 7.0 g/dL (6.3-8.2); Triglycerides 49 mg/dL (<150)
== END 2025-03-31 06:53 | disposition home or self-care (01) ==
PROVIDERS: PCP Emergency Medicine; Visit Provider Emergency Medicine
DX: E78.5 Hyperlipidemia, unspecified (principal); I10 Essential (primary) hypertension; E55.9 Vitamin D deficiency, unspecified
CPT/HCPCS: 36415; 80053; 80061; 82306

== ENCOUNTER 2025-06-30 07:28 | Outpatient (CLI) | payer MEDICARE, SELFPAY ==
[2025-06-30 08:23] LABS: Alanine Aminotransferase 37 U/L (6-50); Albumin Level 4.4 g/dL (3.5-5.1); Alkaline Phosphatase 77 U/L (38-126); Anion Gap 1 mmol/L (4-12); Aspartate Amino Transferase 45 U/L (17-59); Bilirubin,Total 0.6 mg/dL (0.2-1.3); Blood Urea Nitrogen 28 mg/dL (9-20); Calcium 10.8 mg/dL (8.4-10.2); Carbon Dioxide 29 mmol/L (22-30); Chloride 104 mmol/L (98-107); Cholesterol 146 mg/dL (0-200); Estimated Glomerular Filt Rate > 60; Glucose 103 mg/dL (65-110); HDL Direct 66 mg/dL; Potassium 4.7 mmol/L (3.4-5.0); Sodium 134 mmol/L (137-145); Total Protein 7.4 g/dL (6.3-8.2); Triglycerides 68 mg/dL (<150)
== END 2025-06-30 07:29 | disposition home or self-care (01) ==
PROVIDERS: PCP Emergency Medicine; Visit Provider Emergency Medicine
DX: E78.5 Hyperlipidemia, unspecified (principal); E55.9 Vitamin D deficiency, unspecified
CPT/HCPCS: 36415; 80053; 80061; 82306